=== PATIENT | female | born 1945 | race Caucasian/White ===

== ENCOUNTER 2021-06-01 10:38 | Inpatient (IN) ==
[2021-06-01] MEDS ORDERED: Fluticasone Propionate Nasal 50 MCG/SPRAY BOTTLE NS PRN (21:24)
[2021-06-01] MEDS ORDERED: Lactulose Oral Soln 20 GM/30 ML UDC PO SCH (22:00)
[2021-06-01] MEDS: Doxycycline 100 MG CAPSULE PO SCH (23:16)
[2021-06-01] MEDS: Lactulose Oral Soln 20 GM/30 ML UDC PO SCH (23:17)
[2021-06-01] MEDS: Acetaminophen 325 MG TABLET PO PRN (23:20)
[2021-06-02 04:51] LABS: Bilirubin,Urine Small (Negative); Blood,Urine Negative (Negative); Clarity,Urine Clear (Clear); Color,Urine Yellow (Yellow); Glucose,Urine (UA) Normal (Normal); Ketones,Urine Trace mg/dL (Negative); Leukocyte Esterase,Urine Negative (Negative); Nitrite,Urine Negative (Negative); Protein,Urine 30 mg/dL (Neg-Trace); Specific Gravity,Urine 1.025 (1.010-1.025); Urobilinogen,Urine Normal (Normal)
[2021-06-02 04:55] LABS: Bacteria,Urine Few per hpf (None-Few); RBC,Urine 0-3 per hpf (0-3); Squamous Epithelial Cell,Urine Few per hpf (None-Few); WBC,Urine 0-3 per hpf (0-3)
[2021-06-02 05:44] LABS: Basophils # 0.1 K/mcL (0.0-0.2); Basophils % 0.8 %; Eosinophils # 0.2 K/mcL (0.0-0.6); Eosinophils % 2.2 %; Hematocrit 19.6 % (35.3-44.9); Hemoglobin 6.8 g/dL (11.5-15.4); Immature Granulocytes % 0.5 % (0-4); Lymphocytes # 1.9 K/mcL (0.6-4.6); Mean Corpuscular HGB Conc 34.7 g/dL (31.6-35.5); Mean Corpuscular Volume 106.5 fL (83.0-100.0); Mean Platelet Volume 9.2 fL (9.4-12.4); Neutrophils # 4.5 K/mcL (1.6-8.9); Platelet Count 117 K/mcL (140-400); Red Blood Count 1.84 M/mcL (3.82-4.97); Red Cell Distribution Width 17.2 % (11.5-14.5); Segmented Neutrophils % 58.5 %; White Blood Count 7.8 K/mcL (4.3-11.1)
[2021-06-02 05:58] LABS: Alanine Aminotransferase 18 Units/L (7-52); Albumin 2.5 g/dL (3.5-5.7); Alkaline Phosphatase 67 Units/L (34-104); Aspartate Amino Transferase 41 Units/L (13-39); BUN/Creatinine Ratio 31 (6-26); Bilirubin,Total 3.5 mg/dL (0.3-1.0); Blood Urea Nitrogen 14 mg/dL (8-23); Calcium 7.7 mg/dL (8.6-10.3); Carbon Dioxide 27 mEq/L (23-29); Chloride 102 mEq/L (98-107); Globulin 2.4 g/dL (2.4-3.5); Glucose 151 mg/dL (70-105); Osmolality,Calculated 283 (280-300); Potassium 3.8 mEq/L (3.5-5.1); Sodium 135 mEq/L (136-145); Total Protein 4.9 g/dL (6.4-8.9); eGFR For African Americans > 60 (> 60); eGFR For Non-African Americans > 60 (> 60)
[2021-06-02] MEDS: *HR* Enoxaparin 40 MG/0.4 ML SYRINGE SQ SCH (07:23)
[2021-06-02 08:20] LABS: Hematocrit 20.4 % (35.3-44.9); Hemoglobin 6.9 g/dL (11.5-15.4)
[2021-06-02] MEDS: Lactulose Oral Soln 20 GM/30 ML UDC PO SCH ×4 (09:12→20:10)
[2021-06-02] MEDS: Aspirin Enteric Coated 325 MG Tablet PO SCH (09:13)
[2021-06-02] MEDS: Multivit/Ca/Min/Fe/FA 1 TAB TABLET PO SCH (09:13)
[2021-06-02] MEDS: Loratadine 10 MG TABLET PO SCH (09:13)
[2021-06-02] MEDS: Doxycycline 100 MG CAPSULE PO SCH ×2 (09:13→20:10)
[2021-06-02] MEDS: *HR* Metformin 500 MG TABLET PO SCH ×2 (09:13→17:09)
[2021-06-02] MEDS: PARoxetine 20 MG TABLET PO SCH (09:13)
[2021-06-02] MEDS ORDERED: 0.9 % Sodium Chloride 250 ML IVC SCH (09:30)
[2021-06-02] MEDS ORDERED: 0.9 % Sodium Chloride 250 ML ONE (09:33)
[2021-06-02 13:04] LABS: Iron 40 mcg/dL (50-170)
[2021-06-02 14:58] LABS: Hemoglobin 8.5 g/dL (11.5-15.4)
[2021-06-02] MEDS ORDERED: Calcium Gluconate 1gm/50mL 1 GM/50 ML BAG IVPB ONE ×2 (17:09→18:30)
[2021-06-02] MEDS: Acetaminophen 325 MG TABLET PO PRN (18:48)
[2021-06-03 08:04] LABS: Basophils # 0.1 K/mcL (0.0-0.2); Basophils % 0.9 %; Eosinophils # 0.2 K/mcL (0.0-0.6); Eosinophils % 3.1 %; Hematocrit 24.5 % (35.3-44.9); Hemoglobin 8.3 g/dL (11.5-15.4); Lymphocytes # 1.7 K/mcL (0.6-4.6); Mean Corpuscular HGB Conc 33.9 g/dL (31.6-35.5); Mean Corpuscular Hemoglobin 35.6 pg (28.0-33.3); Mean Corpuscular Volume 105.2 fL (83.0-100.0); Mean Platelet Volume 8.7 fL (9.4-12.4); Monocytes % 12.8 %; Neutrophils # 4.7 K/mcL (1.6-8.9); Platelet Count 118 K/mcL (140-400); Red Blood Count 2.33 M/mcL (3.82-4.97); Red Cell Distribution Width 18.3 % (11.5-14.5); Segmented Neutrophils % 60.2 %; White Blood Count 7.8 K/mcL (4.3-11.1)
[2021-06-03 08:15] LABS: VBG HCO3 23 mEq/L (21-27); VBG Ionized Calcium 1.17 mmol/L (1.15-1.35); VBG PCO2 36 mmHg (41-51); VBG PH 7.42 pH Units (7.32-7.42); VBG PO2 79 mmHg (25-50)
[2021-06-03 08:20] LABS: Alanine Aminotransferase 20 Units/L (7-52); Albumin 2.6 g/dL (3.5-5.7); Alkaline Phosphatase 74 Units/L (34-104); Aspartate Amino Transferase 41 Units/L (13-39); BUN/Creatinine Ratio 28 (6-26); Bilirubin,Total 3.7 mg/dL (0.3-1.0); Blood Urea Nitrogen 13 mg/dL (8-23); Calcium 8.1 mg/dL (8.6-10.3); Carbon Dioxide 24 mEq/L (23-29); Chloride 102 mEq/L (98-107); Globulin 2.6 g/dL (2.4-3.5); Glucose 135 mg/dL (70-105); Osmolality,Calculated 278 (280-300); Potassium 3.8 mEq/L (3.5-5.1); Sodium 133 mEq/L (136-145); Total Protein 5.2 g/dL (6.4-8.9); eGFR For African Americans > 60 (> 60); eGFR For Non-African Americans > 60 (> 60)
[2021-06-03] MEDS: Lactulose Oral Soln 20 GM/30 ML UDC PO SCH ×4 (08:54→21:17)
[2021-06-03] MEDS: PARoxetine 20 MG TABLET PO SCH (08:55)
[2021-06-03] MEDS: *HR* Metformin 500 MG TABLET PO SCH ×2 (08:55→17:56)
[2021-06-03] MEDS: Aspirin Enteric Coated 325 MG Tablet PO SCH (08:56)
[2021-06-03] MEDS: Multivit/Ca/Min/Fe/FA 1 TAB TABLET PO SCH (08:56)
[2021-06-03] MEDS: Doxycycline 100 MG CAPSULE PO SCH ×2 (08:56→21:18)
[2021-06-03] MEDS: Loratadine 10 MG TABLET PO SCH (08:56)
[2021-06-03] MEDS: *HR* Enoxaparin 40 MG/0.4 ML SYRINGE SQ SCH (09:14)
[2021-06-03] MEDS: Acetaminophen 325 MG TABLET PO PRN (09:17)
[2021-06-03] MEDS: *HR* OxyCODONE Immed Rel 5 MG TABLET PO PRN (21:17)
[2021-06-04] MEDS: *HR* Enoxaparin 40 MG/0.4 ML SYRINGE SQ SCH (05:37)
[2021-06-04 07:52] LABS: Basophils # 0.1 K/mcL (0.0-0.2); Basophils % 1.1 %; Eosinophils # 0.3 K/mcL (0.0-0.6); Hemoglobin 8.1 g/dL (11.5-15.4); Immature Granulocytes % 0.5 % (0-4); Lymphocytes % 24.9 %; Mean Corpuscular HGB Conc 33.8 g/dL (31.6-35.5); Mean Corpuscular Volume 106.7 fL (83.0-100.0); Mean Platelet Volume 8.8 fL (9.4-12.4); Monocytes # 1.1 K/mcL (0.0-1.3); Monocytes % 13.2 %; Neutrophils # 4.6 K/mcL (1.6-8.9); Platelet Count 121 K/mcL (140-400); Red Blood Count 2.25 M/mcL (3.82-4.97); Red Cell Distribution Width 18.2 % (11.5-14.5); Segmented Neutrophils % 56.3 %; White Blood Count 8.2 K/mcL (4.3-11.1)
[2021-06-04 08:10] LABS: Alanine Aminotransferase 21 Units/L (7-52); Albumin 2.6 g/dL (3.5-5.7); Alkaline Phosphatase 74 Units/L (34-104); Aspartate Amino Transferase 44 Units/L (13-39); BUN/Creatinine Ratio 25 (6-26); Bilirubin,Total 3.3 mg/dL (0.3-1.0); Blood Urea Nitrogen 12 mg/dL (8-23); Calcium 8.1 mg/dL (8.6-10.3); Carbon Dioxide 23 mEq/L (23-29); Chloride 104 mEq/L (98-107); Globulin 2.6 g/dL (2.4-3.5); Glucose 121 mg/dL (70-105); Osmolality,Calculated 279 (280-300); Potassium 3.9 mEq/L (3.5-5.1); Sodium 134 mEq/L (136-145); Total Protein 5.2 g/dL (6.4-8.9); eGFR For African Americans > 60 (> 60); eGFR For Non-African Americans > 60 (> 60)
[2021-06-04] MEDS: Acetaminophen 325 MG TABLET PO PRN (09:58)
[2021-06-04] MEDS: Aspirin Enteric Coated 325 MG Tablet PO SCH (09:58)
[2021-06-04] MEDS: Multivit/Ca/Min/Fe/FA 1 TAB TABLET PO SCH (09:58)
[2021-06-04] MEDS: *HR* Metformin 500 MG TABLET PO SCH ×2 (09:58→16:08)
[2021-06-04] MEDS: Lactulose Oral Soln 20 GM/30 ML UDC PO SCH ×5 (09:59→21:00)
[2021-06-04] MEDS: PARoxetine 20 MG TABLET PO SCH (09:59)
[2021-06-04] MEDS: Loratadine 10 MG TABLET PO SCH (09:59)
[2021-06-05] MEDS: *HR* OxyCODONE Immed Rel 5 MG TABLET PO PRN (02:03)
[2021-06-05 05:13] LABS: Basophils # 0.1 K/mcL (0.0-0.2); Eosinophils # 0.3 K/mcL (0.0-0.6); Hematocrit 24.9 % (35.3-44.9); Hemoglobin 8.1 g/dL (11.5-15.4); Immature Granulocytes % 0.8 % (0-4); Lymphocytes # 1.7 K/mcL (0.6-4.6); Lymphocytes % 21.2 %; Mean Corpuscular HGB Conc 32.5 g/dL (31.6-35.5); Mean Corpuscular Hemoglobin 34.9 pg (28.0-33.3); Mean Corpuscular Volume 107.3 fL (83.0-100.0); Mean Platelet Volume 9.6 fL (9.4-12.4); Monocytes # 1.1 K/mcL (0.0-1.3); Monocytes % 13.7 %; Neutrophils # 4.7 K/mcL (1.6-8.9); Platelet Count 133 K/mcL (140-400); Red Blood Count 2.32 M/mcL (3.82-4.97); Red Cell Distribution Width 18.1 % (11.5-14.5); Segmented Neutrophils % 59.3 %; White Blood Count 7.8 K/mcL (4.3-11.1)
[2021-06-05 05:30] LABS: Alanine Aminotransferase 23 Units/L (7-52); Albumin 2.6 g/dL (3.5-5.7); Alkaline Phosphatase 75 Units/L (34-104); Aspartate Amino Transferase 46 Units/L (13-39); BUN/Creatinine Ratio 33 (6-26); Bilirubin,Total 3.1 mg/dL (0.3-1.0); Blood Urea Nitrogen 14 mg/dL (8-23); Calcium 8.5 mg/dL (8.6-10.3); Carbon Dioxide 24 mEq/L (23-29); Chloride 104 mEq/L (98-107); Globulin 2.7 g/dL (2.4-3.5); Glucose 116 mg/dL (70-105); Osmolality,Calculated 283 (280-300); Potassium 4.4 mEq/L (3.5-5.1); Sodium 136 mEq/L (136-145); Total Protein 5.3 g/dL (6.4-8.9); eGFR For African Americans > 60 (> 60); eGFR For Non-African Americans > 60 (> 60)
[2021-06-05] MEDS: *HR* Enoxaparin 40 MG/0.4 ML SYRINGE SQ SCH (05:56)
[2021-06-05] MEDS: Acetaminophen 325 MG TABLET PO PRN ×2 (05:57→14:17)
[2021-06-05 07:57] LABS: % Iron Saturation 15 % (15-50); Transferrin 188 mg/dL (200-400)
[2021-06-05] MEDS: Lactulose Oral Soln 20 GM/30 ML UDC PO SCH ×4 (08:15→21:58)
[2021-06-05] MEDS: Multivit/Ca/Min/Fe/FA 1 TAB TABLET PO SCH (08:16)
[2021-06-05] MEDS: Loratadine 10 MG TABLET PO SCH (08:16)
[2021-06-05] MEDS: *HR* Metformin 500 MG TABLET PO SCH ×2 (08:16→18:43)
[2021-06-05] MEDS: PARoxetine 20 MG TABLET PO SCH (08:16)
[2021-06-05] MEDS: Aspirin Enteric Coated 325 MG Tablet PO SCH (08:16)
[2021-06-05] MEDS: Ondansetron 4 MG/2 ML VIAL IVP PRN (09:35)
[2021-06-05] MEDS ORDERED: polyethylene glycoL 3350 17 GM POWD.PACK PO ONE (20:47)
[2021-06-06] MEDS: *HR* OxyCODONE Immed Rel 5 MG TABLET PO PRN (01:29)
[2021-06-06 05:09] LABS: Mean Corpuscular Hemoglobin 35.4 pg (28.0-33.3); Mean Corpuscular Volume 110.6 fL (83.0-100.0); Mean Platelet Volume 9.2 fL (9.4-12.4); Platelet Count 122 K/mcL (140-400); Red Blood Count 2.26 M/mcL (3.82-4.97); Red Cell Distribution Width 18.3 % (11.5-14.5); White Blood Count 7.2 K/mcL (4.3-11.1)
[2021-06-06] MEDS: *HR* Enoxaparin 40 MG/0.4 ML SYRINGE SQ SCH (05:09)
[2021-06-06 05:24] LABS: BUN/Creatinine Ratio 24 (6-26); Blood Urea Nitrogen 12 mg/dL (8-23); Calcium 8.4 mg/dL (8.6-10.3); Carbon Dioxide 23 mEq/L (23-29); Chloride 106 mEq/L (98-107); Glucose 133 mg/dL (70-105); Osmolality,Calculated 286 (280-300); Potassium 4.1 mEq/L (3.5-5.1); Sodium 137 mEq/L (136-145); eGFR For African Americans > 60 (> 60); eGFR For Non-African Americans > 60 (> 60)
[2021-06-06] MEDS: Lactulose Oral Soln 20 GM/30 ML UDC PO SCH ×4 (08:28→21:15)
[2021-06-06] MEDS: Loratadine 10 MG TABLET PO SCH (08:31)
[2021-06-06] MEDS: Multivit/Ca/Min/Fe/FA 1 TAB TABLET PO SCH (08:31)
[2021-06-06] MEDS: Aspirin Enteric Coated 325 MG Tablet PO SCH (08:31)
[2021-06-06] MEDS: *HR* Metformin 500 MG TABLET PO SCH ×2 (08:31→17:31)
[2021-06-06] MEDS: PARoxetine 20 MG TABLET PO SCH (08:31)
[2021-06-06 11:38] LABS: Bilirubin,Urine Small (Negative); Blood,Urine Negative (Negative); Clarity,Urine Clear (Clear); Color,Urine Amber (Yellow); Glucose,Urine (UA) Normal (Normal); Ketones,Urine Trace mg/dL (Negative); Leukocyte Esterase,Urine Negative (Negative); Nitrite,Urine Negative (Negative); Protein,Urine Negative (Neg-Trace); Specific Gravity,Urine 1.025 (1.010-1.025); Urobilinogen,Urine Normal (Normal)
[2021-06-07] MEDS: *HR* Enoxaparin 40 MG/0.4 ML SYRINGE SQ SCH (04:54)
[2021-06-07] MEDS: *HR* OxyCODONE Immed Rel 5 MG TABLET PO PRN (04:54)
[2021-06-07] MEDS: Aspirin Enteric Coated 325 MG Tablet PO SCH (08:11)
[2021-06-07] MEDS: *HR* Metformin 500 MG TABLET PO SCH ×2 (08:11→17:13)
[2021-06-07] MEDS: Multivit/Ca/Min/Fe/FA 1 TAB TABLET PO SCH (08:11)
[2021-06-07] MEDS: PARoxetine 20 MG TABLET PO SCH (08:12)
[2021-06-07] MEDS: Loratadine 10 MG TABLET PO SCH (08:12)
[2021-06-07] MEDS: Lactulose Oral Soln 20 GM/30 ML UDC PO SCH ×4 (08:13→20:46)
[2021-06-08] MEDS: Acetaminophen 325 MG TABLET PO PRN ×2 (01:43→21:36)
[2021-06-08] MEDS: *HR* Enoxaparin 40 MG/0.4 ML SYRINGE SQ SCH (05:17)
[2021-06-08 07:02] LABS: Alanine Aminotransferase 28 Units/L (7-52); Albumin 2.5 g/dL (3.5-5.7); Alkaline Phosphatase 73 Units/L (34-104); Aspartate Amino Transferase 55 Units/L (13-39); BUN/Creatinine Ratio 19 (6-26); Bilirubin,Total 2.5 mg/dL (0.3-1.0); Blood Urea Nitrogen 10 mg/dL (8-23); Carbon Dioxide 25 mEq/L (23-29); Chloride 104 mEq/L (98-107); Globulin 2.4 g/dL (2.4-3.5); Glucose 137 mg/dL (70-105); Osmolality,Calculated 285 (280-300); Potassium 3.7 mEq/L (3.5-5.1); Sodium 137 mEq/L (136-145); Total Protein 4.9 g/dL (6.4-8.9); eGFR For African Americans > 60 (> 60); eGFR For Non-African Americans > 60 (> 60)
[2021-06-08 07:04] LABS: Basophils # 0.1 K/mcL (0.0-0.2); Basophils % 0.9 %; Eosinophils # 0.2 K/mcL (0.0-0.6); Eosinophils % 2.4 %; Hematocrit 22.8 % (35.3-44.9); Hemoglobin 7.5 g/dL (11.5-15.4); Immature Granulocytes % 0.2 % (0-4); Lymphocytes # 1.4 K/mcL (0.6-4.6); Lymphocytes % 21.7 %; Mean Corpuscular HGB Conc 32.9 g/dL (31.6-35.5); Mean Corpuscular Hemoglobin 35.5 pg (28.0-33.3); Mean Corpuscular Volume 108.1 fL (83.0-100.0); Mean Platelet Volume 9.5 fL (9.4-12.4); Monocytes # 0.8 K/mcL (0.0-1.3); Monocytes % 12.1 %; Platelet Count 108 K/mcL (140-400); Red Blood Count 2.11 M/mcL (3.82-4.97); Red Cell Distribution Width 18.3 % (11.5-14.5); Segmented Neutrophils % 62.7 %; White Blood Count 6.4 K/mcL (4.3-11.1)
[2021-06-08 07:08] LABS: Calcium 8.2 mg/dL (8.6-10.3)
[2021-06-08] MEDS: *HR* OxyCODONE Immed Rel 5 MG TABLET PO PRN (08:37)
[2021-06-08] MEDS: PARoxetine 20 MG TABLET PO SCH (08:37)
[2021-06-08] MEDS: *HR* Metformin 500 MG TABLET PO SCH ×2 (08:37→16:25)
[2021-06-08] MEDS: Aspirin Enteric Coated 325 MG Tablet PO SCH (08:37)
[2021-06-08] MEDS: Lactulose Oral Soln 20 GM/30 ML UDC PO SCH ×4 (08:37→21:36)
[2021-06-08] MEDS: Loratadine 10 MG TABLET PO SCH (08:37)
[2021-06-08] MEDS: Multivit/Ca/Min/Fe/FA 1 TAB TABLET PO SCH (08:38)
[2021-06-09 06:26] LABS: Basophils # 0.1 K/mcL (0.0-0.2); Eosinophils # 0.2 K/mcL (0.0-0.6); Eosinophils % 3.8 %; Hemoglobin 7.8 g/dL (11.5-15.4); Immature Granulocytes % 0.2 % (0-4); Lymphocytes # 1.3 K/mcL (0.6-4.6); Lymphocytes % 26.1 %; Mean Corpuscular HGB Conc 32.5 g/dL (31.6-35.5); Mean Corpuscular Hemoglobin 35.5 pg (28.0-33.3); Mean Corpuscular Volume 109.1 fL (83.0-100.0); Mean Platelet Volume 9.8 fL (9.4-12.4); Monocytes # 0.6 K/mcL (0.0-1.3); Monocytes % 11.2 %; Neutrophils # 2.9 K/mcL (1.6-8.9); Red Cell Distribution Width 18.1 % (11.5-14.5); Segmented Neutrophils % 57.7 %
[2021-06-09 06:30] LABS: Alanine Aminotransferase 29 Units/L (7-52); Albumin 2.6 g/dL (3.5-5.7); Albumin/Globulin Ratio 1.1 (1.1-2.2); Alkaline Phosphatase 63 Units/L (34-104); Aspartate Amino Transferase 55 Units/L (13-39); BUN/Creatinine Ratio 16 (6-26); Blood Urea Nitrogen 8 mg/dL (8-23); Calcium 8.1 mg/dL (8.6-10.3); Carbon Dioxide 26 mEq/L (23-29); Chloride 105 mEq/L (98-107); Globulin 2.4 g/dL (2.4-3.5); Glucose 102 mg/dL (70-105); Osmolality,Calculated 283 (280-300); Potassium 3.6 mEq/L (3.5-5.1); Sodium 137 mEq/L (136-145); eGFR For African Americans > 60 (> 60); eGFR For Non-African Americans > 60 (> 60)
[2021-06-09 06:41] LABS: Platelet Count 95 K/mcL (140-400)
[2021-06-09 07:02] LABS: Platelet Estimate Slight Decrease (Normal)
[2021-06-09] MEDS: Lactulose Oral Soln 20 GM/30 ML UDC PO SCH ×4 (09:02→22:18)
[2021-06-09] MEDS: *HR* Metformin 500 MG TABLET PO SCH ×2 (09:03→16:56)
[2021-06-09] MEDS: Aspirin Enteric Coated 325 MG Tablet PO SCH (09:03)
[2021-06-09] MEDS: PARoxetine 20 MG TABLET PO SCH (09:03)
[2021-06-09] MEDS: Loratadine 10 MG TABLET PO SCH (09:03)
[2021-06-09] MEDS: Multivit/Ca/Min/Fe/FA 1 TAB TABLET PO SCH (09:03)
[2021-06-09 09:34] LABS: VBG Ionized Calcium 1.13 mmol/L (1.15-1.35)
[2021-06-09] MEDS ORDERED: Calcium Gluconate 1gm/50mL 1 GM/50 ML BAG IVPB ONE (13:08)
[2021-06-09] MEDS: *HR* OxyCODONE Immed Rel 5 MG TABLET PO PRN (13:12)
[2021-06-09] MEDS: Acetaminophen 325 MG TABLET PO PRN (22:24)
[2021-06-10 06:11] LABS: Basophils # 0.1 K/mcL (0.0-0.2); Basophils % 1.3 %; Eosinophils # 0.3 K/mcL (0.0-0.6); Hematocrit 24.6 % (35.3-44.9); Hemoglobin 8.1 g/dL (11.5-15.4); Immature Granulocytes % 0.5 % (0-4); Lymphocytes # 1.4 K/mcL (0.6-4.6); Lymphocytes % 22.4 %; Mean Corpuscular HGB Conc 32.9 g/dL (31.6-35.5); Mean Corpuscular Hemoglobin 35.4 pg (28.0-33.3); Mean Corpuscular Volume 107.4 fL (83.0-100.0); Mean Platelet Volume 9.6 fL (9.4-12.4); Monocytes # 0.8 K/mcL (0.0-1.3); Monocytes % 13.2 %; Neutrophils # 3.6 K/mcL (1.6-8.9); Platelet Count 101 K/mcL (140-400); Red Blood Count 2.29 M/mcL (3.82-4.97); Segmented Neutrophils % 58.6 %; White Blood Count 6.2 K/mcL (4.3-11.1)
[2021-06-10 06:28] LABS: Alanine Aminotransferase 31 Units/L (7-52); Albumin 2.7 g/dL (3.5-5.7); Alkaline Phosphatase 76 Units/L (34-104); Aspartate Amino Transferase 58 Units/L (13-39); BUN/Creatinine Ratio 15 (6-26); Blood Urea Nitrogen 8 mg/dL (8-23); Calcium 8.1 mg/dL (8.6-10.3); Carbon Dioxide 26 mEq/L (23-29); Chloride 105 mEq/L (98-107); Globulin 2.6 g/dL (2.4-3.5); Glucose 124 mg/dL (70-105); Osmolality,Calculated 284 (280-300); Potassium 3.7 mEq/L (3.5-5.1); Sodium 137 mEq/L (136-145); Total Protein 5.3 g/dL (6.4-8.9); eGFR For African Americans > 60 (> 60); eGFR For Non-African Americans > 60 (> 60)
[2021-06-10] MEDS: Multivit/Ca/Min/Fe/FA 1 TAB TABLET PO SCH (09:35)
[2021-06-10] MEDS: Aspirin Enteric Coated 325 MG Tablet PO SCH (09:35)
[2021-06-10] MEDS: Loratadine 10 MG TABLET PO SCH (09:35)
[2021-06-10] MEDS: PARoxetine 20 MG TABLET PO SCH (09:35)
[2021-06-10] MEDS: Lactulose Oral Soln 20 GM/30 ML UDC PO SCH ×4 (09:36→21:05)
[2021-06-10] MEDS: *HR* Metformin 500 MG TABLET PO SCH ×2 (09:36→17:41)
[2021-06-10] MEDS: Acetaminophen 325 MG TABLET PO PRN ×2 (09:38→21:06)
[2021-06-11] MEDS: *HR* OxyCODONE Immed Rel 5 MG TABLET PO PRN ×2 (00:27→20:16)
[2021-06-11 06:46] LABS: Basophils # 0.1 K/mcL (0.0-0.2); Basophils % 1.2 %; Eosinophils # 0.3 K/mcL (0.0-0.6); Eosinophils % 4.4 %; Hematocrit 24.6 % (35.3-44.9); Immature Granulocytes % 0.2 % (0-4); Lymphocytes # 1.4 K/mcL (0.6-4.6); Lymphocytes % 22.8 %; Mean Corpuscular HGB Conc 32.5 g/dL (31.6-35.5); Mean Corpuscular Hemoglobin 35.7 pg (28.0-33.3); Mean Corpuscular Volume 109.8 fL (83.0-100.0); Mean Platelet Volume 8.9 fL (9.4-12.4); Monocytes # 0.7 K/mcL (0.0-1.3); Monocytes % 11.8 %; Neutrophils # 3.5 K/mcL (1.6-8.9); Red Blood Count 2.24 M/mcL (3.82-4.97); Red Cell Distribution Width 18.3 % (11.5-14.5); Segmented Neutrophils % 59.6 %; White Blood Count 5.9 K/mcL (4.3-11.1)
[2021-06-11 06:47] LABS: Platelet Count 94 K/mcL (140-400)
[2021-06-11 07:06] LABS: Alanine Aminotransferase 29 Units/L (7-52); Albumin 2.6 g/dL (3.5-5.7); Alkaline Phosphatase 80 Units/L (34-104); Aspartate Amino Transferase 58 Units/L (13-39); BUN/Creatinine Ratio 19 (6-26); Bilirubin,Total 2.7 mg/dL (0.3-1.0); Blood Urea Nitrogen 10 mg/dL (8-23); Carbon Dioxide 24 mEq/L (23-29); Chloride 105 mEq/L (98-107); Globulin 2.5 g/dL (2.4-3.5); Glucose 106 mg/dL (70-105); Osmolality,Calculated 279 (280-300); Potassium 3.8 mEq/L (3.5-5.1); Sodium 135 mEq/L (136-145); Total Protein 5.1 g/dL (6.4-8.9); eGFR For African Americans > 60 (> 60); eGFR For Non-African Americans > 60 (> 60)
[2021-06-11] MEDS ORDERED: Furosemide 20 MG TABLET PO ONE (08:15)
[2021-06-11] MEDS: PARoxetine 20 MG TABLET PO SCH (09:20)
[2021-06-11] MEDS: Loratadine 10 MG TABLET PO SCH (09:20)
[2021-06-11] MEDS: Lactulose Oral Soln 20 GM/30 ML UDC PO SCH ×3 (09:20→17:12)
[2021-06-11] MEDS: Multivit/Ca/Min/Fe/FA 1 TAB TABLET PO SCH (09:20)
[2021-06-11] MEDS: *HR* Metformin 500 MG TABLET PO SCH ×2 (09:20→17:08)
[2021-06-11] MEDS: Aspirin Enteric Coated 325 MG Tablet PO SCH (09:20)
[2021-06-12] MEDS: Lactulose Oral Soln 20 GM/30 ML UDC PO SCH ×5 (01:29→20:37)
[2021-06-12] MEDS: *HR* OxyCODONE Immed Rel 5 MG TABLET PO PRN ×2 (06:08→23:18)
[2021-06-12] MEDS: *HR* Metformin 500 MG TABLET PO SCH ×2 (06:08→18:43)
[2021-06-12] MEDS: Aspirin Enteric Coated 325 MG Tablet PO SCH (08:33)
[2021-06-12] MEDS: Multivit/Ca/Min/Fe/FA 1 TAB TABLET PO SCH (08:33)
[2021-06-12] MEDS: PARoxetine 20 MG TABLET PO SCH (08:33)
[2021-06-12] MEDS: Loratadine 10 MG TABLET PO SCH (08:33)
[2021-06-13] MEDS: Acetaminophen 325 MG TABLET PO PRN (05:40)
[2021-06-13] MEDS: Aspirin Enteric Coated 325 MG Tablet PO SCH (08:38)
[2021-06-13] MEDS: Loratadine 10 MG TABLET PO SCH (08:38)
[2021-06-13] MEDS: PARoxetine 20 MG TABLET PO SCH (08:38)
[2021-06-13] MEDS: *HR* Metformin 500 MG TABLET PO SCH ×2 (08:38→17:55)
[2021-06-13] MEDS: Lactulose Oral Soln 20 GM/30 ML UDC PO SCH ×4 (08:38→21:35)
[2021-06-13] MEDS: Multivit/Ca/Min/Fe/FA 1 TAB TABLET PO SCH (08:38)
[2021-06-13] MEDS: *HR* OxyCODONE Immed Rel 5 MG TABLET PO PRN (21:40)
[2021-06-14 05:34] LABS: Basophils # 0.1 K/mcL (0.0-0.2); Basophils % 0.9 %; Eosinophils # 0.3 K/mcL (0.0-0.6); Eosinophils % 5.1 %; Hematocrit 27.2 % (35.3-44.9); Hemoglobin 8.8 g/dL (11.5-15.4); Immature Granulocytes % 0.3 % (0-4); Lymphocytes # 1.4 K/mcL (0.6-4.6); Lymphocytes % 23.5 %; Mean Corpuscular HGB Conc 32.4 g/dL (31.6-35.5); Mean Corpuscular Hemoglobin 35.9 pg (28.0-33.3); Monocytes # 0.6 K/mcL (0.0-1.3); Monocytes % 10.6 %; Neutrophils # 3.5 K/mcL (1.6-8.9); Platelet Count 104 K/mcL (140-400); Red Blood Count 2.45 M/mcL (3.82-4.97); Red Cell Distribution Width 18.1 % (11.5-14.5); Segmented Neutrophils % 59.6 %; White Blood Count 5.8 K/mcL (4.3-11.1)
[2021-06-14 05:38] LABS: Macrocytosis Present (Not Present); Platelet Estimate Slight Decrease (Normal)
[2021-06-14 05:50] LABS: Alanine Aminotransferase 24 Units/L (7-52); Albumin 2.7 g/dL (3.5-5.7); Albumin/Globulin Ratio 1.1 (1.1-2.2); Alkaline Phosphatase 79 Units/L (34-104); Aspartate Amino Transferase 50 Units/L (13-39); BUN/Creatinine Ratio 19 (6-26); Bilirubin,Total 3.4 mg/dL (0.3-1.0); Blood Urea Nitrogen 9 mg/dL (8-23); Calcium 9.4 mg/dL (8.6-10.3); Carbon Dioxide 25 mEq/L (23-29); Chloride 105 mEq/L (98-107); Globulin 2.5 g/dL (2.4-3.5); Glucose 93 mg/dL (70-105); Osmolality,Calculated 286 (280-300); Sodium 139 mEq/L (136-145); Total Protein 5.2 g/dL (6.4-8.9); eGFR For African Americans > 60 (> 60); eGFR For Non-African Americans > 60 (> 60)
[2021-06-14] MEDS: *HR* OxyCODONE Immed Rel 5 MG TABLET PO PRN (07:41)
[2021-06-14] MEDS: Loratadine 10 MG TABLET PO SCH (07:42)
[2021-06-14] MEDS: Aspirin Enteric Coated 325 MG Tablet PO SCH (07:42)
[2021-06-14] MEDS: PARoxetine 20 MG TABLET PO SCH (07:42)
[2021-06-14] MEDS: Multivit/Ca/Min/Fe/FA 1 TAB TABLET PO SCH (07:42)
[2021-06-14] MEDS: *HR* Metformin 500 MG TABLET PO SCH ×2 (07:43→16:21)
[2021-06-14] MEDS: Lactulose Oral Soln 20 GM/30 ML UDC PO SCH ×4 (09:26→20:28)
[2021-06-14] MEDS: Acetaminophen 325 MG TABLET PO PRN ×2 (14:23→20:27)
[2021-06-14] MEDS ORDERED: Furosemide 40 MG TABLET PO ONE (16:15)
[2021-06-15] MEDS: *HR* Enoxaparin 40 MG/0.4 ML SYRINGE SQ SCH (05:10)
[2021-06-15] MEDS: Multivit/Ca/Min/Fe/FA 1 TAB TABLET PO SCH (08:50)
[2021-06-15] MEDS: Loratadine 10 MG TABLET PO SCH (08:50)
[2021-06-15] MEDS: Aspirin Enteric Coated 325 MG Tablet PO SCH (08:50)
[2021-06-15] MEDS: Lactulose Oral Soln 20 GM/30 ML UDC PO SCH ×4 (08:50→20:18)
[2021-06-15] MEDS: PARoxetine 20 MG TABLET PO SCH (08:50)
[2021-06-15] MEDS: *HR* Metformin 500 MG TABLET PO SCH ×2 (08:50→17:26)
[2021-06-15] MEDS: Acetaminophen 325 MG TABLET PO PRN ×2 (08:55→20:36)
[2021-06-15] MEDS ORDERED: Furosemide 40 MG TABLET PO SCH (10:00)
[2021-06-15 10:59] LABS: Bilirubin,Urine Negative (Negative); Blood,Urine Negative (Negative); Clarity,Urine Cloudy (Clear); Color,Urine Yellow (Yellow); Glucose,Urine (UA) Normal (Normal); Ketones,Urine Negative (Negative); Leukocyte Esterase,Urine Trace (Negative); Nitrite,Urine Negative (Negative); PH,Urine 7.5 pH Units (5.0-8.0); Protein,Urine Negative (Neg-Trace); Urobilinogen,Urine >=8.0 mg/dL (Normal)
[2021-06-15 11:30] LABS: Bacteria,Urine Many per hpf (None-Few)
[2021-06-15 11:31] LABS: Squamous Epithelial Cell,Urine Few per hpf (None-Few); WBC,Urine 0-3 per hpf (0-3)
[2021-06-15] MEDS ORDERED: Furosemide 40 MG TABLET PO ONE (16:04)
[2021-06-15] MEDS ORDERED: cefTRIAXone 1,000 MG in Water for inj. (sterile) 10 ML IVP ONE (19:45)
[2021-06-15] MEDS ORDERED: cefTRIAXone 1,000 MG in 0.9 % Sodium Chloride Mini Bag 100 ML IVPB ONE (22:00)
[2021-06-16] MEDS: Ondansetron 4 MG/2 ML VIAL IVP PRN
[2021-06-16 00:53] LABS: Basophils % 0.5 %; Eosinophils % 1.1 %; Hematocrit 28.3 % (35.3-44.9); Hemoglobin 9.3 g/dL (11.5-15.4); Immature Granulocytes % 0.5 % (0-4); Lymphocytes # 0.2 K/mcL (0.6-4.6); Lymphocytes % 6.6 %; Mean Corpuscular HGB Conc 32.9 g/dL (31.6-35.5); Mean Corpuscular Hemoglobin 35.8 pg (28.0-33.3); Mean Corpuscular Volume 108.8 fL (83.0-100.0); Mean Platelet Volume 9.7 fL (9.4-12.4); Monocytes # 0.1 K/mcL (0.0-1.3); Monocytes % 2.5 %; Neutrophils # 3.2 K/mcL (1.6-8.9); Red Cell Distribution Width 17.7 % (11.5-14.5); Segmented Neutrophils % 88.8 %; White Blood Count 3.6 K/mcL (4.3-11.1)
[2021-06-16 01:02] LABS: Platelet Count 93 K/mcL (140-400)
[2021-06-16 01:11] LABS: Alanine Aminotransferase 27 Units/L (7-52); Albumin 3.1 g/dL (3.5-5.7); Albumin/Globulin Ratio 0.9 (1.1-2.2); Alkaline Phosphatase 88 Units/L (34-104); Aspartate Amino Transferase 53 Units/L (13-39); BUN/Creatinine Ratio 12 (6-26); Bilirubin,Total 3.2 mg/dL (0.3-1.0); Blood Urea Nitrogen 7 mg/dL (8-23); Calcium 9.2 mg/dL (8.6-10.3); Carbon Dioxide 24 mEq/L (23-29); Chloride 101 mEq/L (98-107); Globulin 3.5 g/dL (2.4-3.5); Glucose 150 mg/dL (70-105); Lipase 75 Units/L (11-82); Osmolality,Calculated 285 (280-300); Potassium 3.3 mEq/L (3.5-5.1); Sodium 137 mEq/L (136-145); Total Protein 6.6 g/dL (6.4-8.9); eGFR For African Americans > 60 (> 60); eGFR For Non-African Americans > 60 (> 60)
[2021-06-16] MEDS ORDERED: Acetaminophen 650 MG RECTAL SUPP RC ONE (01:49)
[2021-06-16] MEDS ORDERED: Iopamidol - 370 500 ML MLS IVP ONE ×2 (03:08→03:10)
[2021-06-16] MEDS ORDERED: Ringers Solution, Lactated 1,000 ML IVC ONE (03:24)
[2021-06-16] MEDS ORDERED: VANCOMYCIN IVPB ONE (04:00)
[2021-06-16] MEDS ORDERED: SODIUM CHLORIDE 0.9% IVPB ONE (04:00)
[2021-06-16 04:34] VITALS: BP 122/67; PULSE 114; RESP 17; TEMP 98.1; O2SAT 91
[2021-06-16 07:02] LABS: Adenovirus Not Detected (Not Detect); Coronavirus 229E Not Detected (Not Detect); Coronavirus HKU1 Not Detected (Not Detect); Coronavirus NL63 Not Detected (Not Detect); Coronavirus OC43 Not Detected (Not Detect); Human Metapneumovirus Not Detected (Not Detect); Human Rhinovirus/Enterovirus Not Detected (Not Detect); SARS-CoV-2 Not Detected (Not Detect)
[2021-06-16 07:03] LABS: Bordetella Pertussis Not Detected (Not Detect); Chlamydophila pneumoniae Not Detected (Not Detect); Influenza A Subtype 2009 H1 Not Detected (Not Detect); Influenza B Not Detected (Not Detect); Mycoplasma pneumoniae Not Detected (Not Detect); Parainfluenza Virus 1 Not Detected (Not Detect); Parainfluenza Virus 2 Not Detected (Not Detect); Parainfluenza Virus 3 Not Detected (Not Detect); Parainfluenza Virus 4 Not Detected (Not Detect); Respiratory Syncytial Virus Not Detected (Not Detect)
[2021-06-16] MEDS ORDERED: cefTRIAXone 1,000 MG in 0.9 % Sodium Chloride Mini Bag 100 ML IVPB SCH (09:00)
[2021-06-16] MEDS ORDERED: cefTRIAXone 1,000 MG in Water for inj. (sterile) 10 ML IVP SCH (09:00)
[2021-06-16] MEDS ORDERED: Vancomycin 1,250 MG/262.5 ML IV.SOLN IVPB SCH (16:00)
== END 2021-06-16 05:31 | disposition short-term general hospital (02) ==
LOC: INPGRE 20:16
PROVIDERS: ADMIT Family Medicine; ATTEND Family Medicine

== ENCOUNTER 2021-06-20 15:57 | Inpatient (IN) ==
[2021-06-21] MEDS: Furosemide 40 MG/4 ML VIAL IVP SCH (14:22)
[2021-06-21 14:52] LABS: Bilirubin,Urine Small (Negative); Blood,Urine Negative (Negative); Clarity,Urine Clear (Clear); Color,Urine Yellow (Yellow); Glucose,Urine (UA) Normal (Normal); Ketones,Urine Negative (Negative); Leukocyte Esterase,Urine Negative (Negative); Nitrite,Urine Negative (Negative); Protein,Urine Negative (Neg-Trace); Specific Gravity,Urine 1.025 (1.010-1.025); Urobilinogen,Urine >=8.0 mg/dL (Normal)
[2021-06-21] MEDS: Lactulose Oral Soln 20 GM/30 ML UDC PO SCH ×2 (17:49→21:04)
[2021-06-21] MEDS: *HR* Metformin 500 MG TABLET PO SCH (21:01)
[2021-06-22] MEDS: *HR* Enoxaparin 40 MG/0.4 ML SYRINGE SQ SCH (05:17)
[2021-06-22 06:34] LABS: Alanine Aminotransferase 15 Units/L (7-52); Albumin 2.6 g/dL (3.5-5.7); Albumin/Globulin Ratio 0.8 (1.1-2.2); Alkaline Phosphatase 73 Units/L (34-104); Aspartate Amino Transferase 46 Units/L (13-39); BUN/Creatinine Ratio 24 (6-26); Bilirubin,Total 2.6 mg/dL (0.3-1.0); Blood Urea Nitrogen 9 mg/dL (8-23); Calcium 8.1 mg/dL (8.6-10.3); Carbon Dioxide 23 mEq/L (23-29); Chloride 106 mEq/L (98-107); Globulin 3.2 g/dL (2.4-3.5); Glucose 90 mg/dL (70-105); Osmolality,Calculated 282 (280-300); Potassium 3.8 mEq/L (3.5-5.1); Sodium 137 mEq/L (136-145); Total Protein 5.8 g/dL (6.4-8.9); eGFR For African Americans > 60 (> 60); eGFR For Non-African Americans > 60 (> 60)
[2021-06-22] MEDS: Furosemide 40 MG/4 ML VIAL IVP SCH (08:18)
[2021-06-22] MEDS: Multivit/Ca/Min/Fe/FA 1 TAB TABLET PO SCH (08:19)
[2021-06-22] MEDS: Lactulose Oral Soln 20 GM/30 ML UDC PO SCH ×4 (08:19→19:50)
[2021-06-22] MEDS: *HR* Metformin 500 MG TABLET PO SCH ×2 (08:19→19:50)
[2021-06-22] MEDS: PARoxetine 20 MG TABLET PO SCH (08:20)
[2021-06-22] MEDS: Loratadine 10 MG TABLET PO SCH (08:20)
[2021-06-22] MEDS: Aspirin Enteric Coated 325 MG Tablet PO SCH (08:20)
[2021-06-22 09:47] LABS: VBG Ionized Calcium 1.24 mmol/L (1.15-1.35)
[2021-06-23] MEDS: *HR* Enoxaparin 40 MG/0.4 ML SYRINGE SQ SCH (06:02)
[2021-06-23 06:14] LABS: Basophils # 0.1 K/mcL (0.0-0.2); Eosinophils # 0.3 K/mcL (0.0-0.6); Eosinophils % 4.8 %; Hematocrit 26.8 % (35.3-44.9); Hemoglobin 8.9 g/dL (11.5-15.4); Immature Granulocytes % 0.8 % (0-4); Lymphocytes # 1.6 K/mcL (0.6-4.6); Lymphocytes % 25.2 %; Mean Corpuscular HGB Conc 33.2 g/dL (31.6-35.5); Mean Corpuscular Hemoglobin 35.7 pg (28.0-33.3); Mean Corpuscular Volume 107.6 fL (83.0-100.0); Mean Platelet Volume 9.9 fL (9.4-12.4); Monocytes # 0.8 K/mcL (0.0-1.3); Monocytes % 12.4 %; Neutrophils # 3.5 K/mcL (1.6-8.9); Platelet Count 113 K/mcL (140-400); Red Blood Count 2.49 M/mcL (3.82-4.97); Red Cell Distribution Width 17.2 % (11.5-14.5); Segmented Neutrophils % 55.8 %; White Blood Count 6.3 K/mcL (4.3-11.1)
[2021-06-23 06:41] LABS: BUN/Creatinine Ratio 23 (6-26); Blood Urea Nitrogen 8 mg/dL (8-23); Calcium 8.2 mg/dL (8.6-10.3); Carbon Dioxide 28 mEq/L (23-29); Chloride 106 mEq/L (98-107); Glucose 93 mg/dL (70-105); Osmolality,Calculated 288 (280-300); Potassium 3.3 mEq/L (3.5-5.1); Sodium 140 mEq/L (136-145); eGFR For African Americans > 60 (> 60); eGFR For Non-African Americans > 60 (> 60)
[2021-06-23] MEDS: *HR* Metformin 500 MG TABLET PO SCH ×2 (08:51→20:06)
[2021-06-23] MEDS: Multivit/Ca/Min/Fe/FA 1 TAB TABLET PO SCH (08:51)
[2021-06-23] MEDS: Loratadine 10 MG TABLET PO SCH (08:52)
[2021-06-23] MEDS: Aspirin Enteric Coated 325 MG Tablet PO SCH (08:52)
[2021-06-23] MEDS: Lactulose Oral Soln 20 GM/30 ML UDC PO SCH ×4 (08:53→20:06)
[2021-06-23] MEDS: PARoxetine 20 MG TABLET PO SCH (08:53)
[2021-06-23] MEDS: Furosemide 40 MG/4 ML VIAL IVP SCH (08:54)
[2021-06-23 18:04] LABS: Bilirubin,Urine Small (Negative); Blood,Urine Trace-intact (Negative); Clarity,Urine Clear (Clear); Color,Urine Yellow (Yellow); Glucose,Urine (UA) Normal (Normal); Ketones,Urine Trace mg/dL (Negative); Leukocyte Esterase,Urine Negative (Negative); Nitrite,Urine Negative (Negative); PH,Urine 7.5 pH Units (5.0-8.0); Protein,Urine Negative (Neg-Trace); Urobilinogen,Urine >=8.0 mg/dL (Normal)
[2021-06-24] MEDS: *HR* Enoxaparin 40 MG/0.4 ML SYRINGE SQ SCH (05:23)
[2021-06-24 06:21] LABS: Basophils # 0.1 K/mcL (0.0-0.2); Basophils % 0.8 %; Eosinophils # 0.2 K/mcL (0.0-0.6); Eosinophils % 4.1 %; Hematocrit 27.8 % (35.3-44.9); Hemoglobin 9.1 g/dL (11.5-15.4); Immature Granulocytes % 0.5 % (0-4); Lymphocytes # 1.8 K/mcL (0.6-4.6); Lymphocytes % 29.9 %; Mean Corpuscular HGB Conc 32.7 g/dL (31.6-35.5); Mean Corpuscular Hemoglobin 35.4 pg (28.0-33.3); Mean Corpuscular Volume 108.2 fL (83.0-100.0); Mean Platelet Volume 9.4 fL (9.4-12.4); Monocytes # 0.7 K/mcL (0.0-1.3); Monocytes % 11.8 %; Neutrophils # 3.1 K/mcL (1.6-8.9); Platelet Count 105 K/mcL (140-400); Red Blood Count 2.57 M/mcL (3.82-4.97); Red Cell Distribution Width 17.2 % (11.5-14.5); Segmented Neutrophils % 52.9 %; White Blood Count 5.9 K/mcL (4.3-11.1)
[2021-06-24 07:01] LABS: Alanine Aminotransferase 17 Units/L (7-52); Albumin 2.6 g/dL (3.5-5.7); Albumin/Globulin Ratio 0.8 (1.1-2.2); Alkaline Phosphatase 72 Units/L (34-104); Aspartate Amino Transferase 42 Units/L (13-39); BUN/Creatinine Ratio 18 (6-26); Bilirubin,Total 2.6 mg/dL (0.3-1.0); Blood Urea Nitrogen 7 mg/dL (8-23); Calcium 8.4 mg/dL (8.6-10.3); Carbon Dioxide 29 mEq/L (23-29); Chloride 106 mEq/L (98-107); Globulin 3.2 g/dL (2.4-3.5); Glucose 92 mg/dL (70-105); Osmolality,Calculated 288 (280-300); Potassium 3.6 mEq/L (3.5-5.1); Sodium 140 mEq/L (136-145); Total Protein 5.8 g/dL (6.4-8.9); eGFR For African Americans > 60 (> 60); eGFR For Non-African Americans > 60 (> 60)
[2021-06-24] MEDS: Loratadine 10 MG TABLET PO SCH (08:26)
[2021-06-24] MEDS: Furosemide 40 MG/4 ML VIAL IVP SCH (08:26)
[2021-06-24] MEDS: Multivit/Ca/Min/Fe/FA 1 TAB TABLET PO SCH (08:26)
[2021-06-24] MEDS: PARoxetine 20 MG TABLET PO SCH (08:26)
[2021-06-24] MEDS: Aspirin Enteric Coated 325 MG Tablet PO SCH (08:26)
[2021-06-24] MEDS: *HR* Metformin 500 MG TABLET PO SCH ×2 (08:26→22:17)
[2021-06-24] MEDS: Lactulose Oral Soln 20 GM/30 ML UDC PO SCH ×4 (08:27→22:16)
[2021-06-25] MEDS: *HR* Enoxaparin 40 MG/0.4 ML SYRINGE SQ SCH (06:23)
[2021-06-25 06:34] LABS: Albumin 2.7 g/dL (3.5-5.7); Albumin/Globulin Ratio 0.8 (1.1-2.2); Bilirubin,Direct 0.8 mg/dL (0.0-0.2); Bilirubin,Indirect 1.7 mg/dL (0.0-1.0); Bilirubin,Total 2.5 mg/dL (0.3-1.0); Globulin 3.2 g/dL (2.4-3.5); Total Protein 5.9 g/dL (6.4-8.9)
[2021-06-25] MEDS: Aspirin Enteric Coated 325 MG Tablet PO SCH (08:24)
[2021-06-25] MEDS: Multivit/Ca/Min/Fe/FA 1 TAB TABLET PO SCH (08:24)
[2021-06-25] MEDS: *HR* Metformin 500 MG TABLET PO SCH ×2 (08:25→22:41)
[2021-06-25] MEDS: PARoxetine 20 MG TABLET PO SCH (08:25)
[2021-06-25] MEDS: Loratadine 10 MG TABLET PO SCH (08:25)
[2021-06-25] MEDS: Lactulose Oral Soln 20 GM/30 ML UDC PO SCH ×4 (08:26→22:41)
[2021-06-25] MEDS: Furosemide 40 MG/4 ML VIAL IVP SCH (08:26)
[2021-06-26 04:59] LABS: Basophils # 0.1 K/mcL (0.0-0.2); Basophils % 0.9 %; Eosinophils # 0.2 K/mcL (0.0-0.6); Eosinophils % 3.2 %; Hematocrit 27.5 % (35.3-44.9); Hemoglobin 9.1 g/dL (11.5-15.4); Immature Granulocytes % 0.2 % (0-4); Lymphocytes # 1.4 K/mcL (0.6-4.6); Lymphocytes % 23.2 %; Mean Corpuscular HGB Conc 33.1 g/dL (31.6-35.5); Mean Corpuscular Hemoglobin 35.7 pg (28.0-33.3); Mean Corpuscular Volume 107.8 fL (83.0-100.0); Monocytes # 0.6 K/mcL (0.0-1.3); Monocytes % 9.6 %; Neutrophils # 3.7 K/mcL (1.6-8.9); Red Blood Count 2.55 M/mcL (3.82-4.97); Red Cell Distribution Width 16.8 % (11.5-14.5); Segmented Neutrophils % 62.9 %; White Blood Count 5.9 K/mcL (4.3-11.1)
[2021-06-26 05:06] LABS: Platelet Count 96 K/mcL (140-400)
[2021-06-26] MEDS: *HR* Enoxaparin 40 MG/0.4 ML SYRINGE SQ SCH (05:09)
[2021-06-26 05:17] LABS: Alanine Aminotransferase 18 Units/L (7-52); Albumin 2.6 g/dL (3.5-5.7); Albumin/Globulin Ratio 0.8 (1.1-2.2); Alkaline Phosphatase 73 Units/L (34-104); Aspartate Amino Transferase 48 Units/L (13-39); BUN/Creatinine Ratio 20 (6-26); Bilirubin,Direct 0.8 mg/dL (0.0-0.2); Bilirubin,Indirect 1.9 mg/dL (0.0-1.0); Bilirubin,Total 2.7 mg/dL (0.3-1.0); Blood Urea Nitrogen 8 mg/dL (8-23); Calcium 8.7 mg/dL (8.6-10.3); Carbon Dioxide 27 mEq/L (23-29); Chloride 108 mEq/L (98-107); Globulin 3.3 g/dL (2.4-3.5); Glucose 104 mg/dL (70-105); Osmolality,Calculated 291 (280-300); Potassium 3.9 mEq/L (3.5-5.1); Sodium 141 mEq/L (136-145); Total Protein 5.9 g/dL (6.4-8.9); eGFR For African Americans > 60 (> 60); eGFR For Non-African Americans > 60 (> 60)
[2021-06-26] MEDS: Lactulose Oral Soln 20 GM/30 ML UDC PO SCH ×4 (09:47→20:22)
[2021-06-26] MEDS: *HR* Metformin 500 MG TABLET PO SCH ×2 (09:47→20:22)
[2021-06-26] MEDS: Multivit/Ca/Min/Fe/FA 1 TAB TABLET PO SCH (09:48)
[2021-06-26] MEDS: Aspirin Enteric Coated 325 MG Tablet PO SCH (09:48)
[2021-06-26] MEDS: Loratadine 10 MG TABLET PO SCH (09:48)
[2021-06-26] MEDS: PARoxetine 20 MG TABLET PO SCH (09:48)
[2021-06-26] MEDS: Furosemide 40 MG/4 ML VIAL IVP SCH (09:49)
[2021-06-27] MEDS: *HR* Enoxaparin 40 MG/0.4 ML SYRINGE SQ SCH (04:55)
[2021-06-27 05:56] LABS: Basophils # 0.1 K/mcL (0.0-0.2); Basophils % 0.9 %; Eosinophils # 0.2 K/mcL (0.0-0.6); Eosinophils % 2.2 %; Hematocrit 28.7 % (35.3-44.9); Hemoglobin 9.6 g/dL (11.5-15.4); Immature Granulocytes % 0.3 % (0-4); Lymphocytes # 1.5 K/mcL (0.6-4.6); Lymphocytes % 21.8 %; Mean Corpuscular HGB Conc 33.4 g/dL (31.6-35.5); Mean Corpuscular Hemoglobin 35.3 pg (28.0-33.3); Mean Corpuscular Volume 105.5 fL (83.0-100.0); Mean Platelet Volume 10.4 fL (9.4-12.4); Monocytes # 0.7 K/mcL (0.0-1.3); Monocytes % 10.1 %; Neutrophils # 4.4 K/mcL (1.6-8.9); Platelet Count 106 K/mcL (140-400); Red Blood Count 2.72 M/mcL (3.82-4.97); Red Cell Distribution Width 16.5 % (11.5-14.5); Segmented Neutrophils % 64.7 %; White Blood Count 6.8 K/mcL (4.3-11.1)
[2021-06-27 06:09] LABS: Alanine Aminotransferase 19 Units/L (7-52); Albumin 2.7 g/dL (3.5-5.7); Albumin/Globulin Ratio 0.8 (1.1-2.2); Alkaline Phosphatase 68 Units/L (34-104); Aspartate Amino Transferase 49 Units/L (13-39); BUN/Creatinine Ratio 20 (6-26); Bilirubin,Direct 0.9 mg/dL (0.0-0.2); Bilirubin,Indirect 2.1 mg/dL (0.0-1.0); Blood Urea Nitrogen 8 mg/dL (8-23); Calcium 8.7 mg/dL (8.6-10.3); Carbon Dioxide 27 mEq/L (23-29); Chloride 107 mEq/L (98-107); Globulin 3.2 g/dL (2.4-3.5); Glucose 101 mg/dL (70-105); Osmolality,Calculated 286 (280-300); Potassium 3.7 mEq/L (3.5-5.1); Sodium 139 mEq/L (136-145); Total Protein 5.9 g/dL (6.4-8.9); eGFR For African Americans > 60 (> 60); eGFR For Non-African Americans > 60 (> 60)
[2021-06-27] MEDS: Lactulose Oral Soln 20 GM/30 ML UDC PO SCH ×4 (08:32→20:16)
[2021-06-27] MEDS: Aspirin Enteric Coated 325 MG Tablet PO SCH (08:33)
[2021-06-27] MEDS: Loratadine 10 MG TABLET PO SCH (08:33)
[2021-06-27] MEDS: PARoxetine 20 MG TABLET PO SCH (08:33)
[2021-06-27] MEDS: Multivit/Ca/Min/Fe/FA 1 TAB TABLET PO SCH (08:33)
[2021-06-27] MEDS: *HR* Metformin 500 MG TABLET PO SCH ×2 (08:33→20:17)
[2021-06-27] MEDS: Furosemide 40 MG/4 ML VIAL IVP SCH (08:34)
[2021-06-27 13:29] LABS: Bilirubin,Urine Negative (Negative); Blood,Urine Moderate (Negative); Clarity,Urine Clear (Clear); Color,Urine Yellow (Yellow); Glucose,Urine (UA) Normal (Normal); Ketones,Urine Negative (Negative); Leukocyte Esterase,Urine Negative (Negative); Nitrite,Urine Negative (Negative); Protein,Urine Negative (Neg-Trace); Urobilinogen,Urine Normal (Normal)
[2021-06-27 13:38] LABS: Squamous Epithelial Cell,Urine Few per hpf (None-Few)
[2021-06-28] MEDS ORDERED: Furosemide 40 MG/4 ML VIAL IVP SCH (04:00)
[2021-06-28 05:02] LABS: Basophils # 0.1 K/mcL (0.0-0.2); Basophils % 0.8 %; Eosinophils # 0.2 K/mcL (0.0-0.6); Eosinophils % 2.3 %; Hemoglobin 9.5 g/dL (11.5-15.4); Immature Granulocytes % 0.4 % (0-4); Lymphocytes # 1.8 K/mcL (0.6-4.6); Lymphocytes % 22.9 %; Mean Corpuscular HGB Conc 32.8 g/dL (31.6-35.5); Mean Corpuscular Hemoglobin 34.7 pg (28.0-33.3); Mean Corpuscular Volume 105.8 fL (83.0-100.0); Mean Platelet Volume 9.7 fL (9.4-12.4); Monocytes # 0.8 K/mcL (0.0-1.3); Neutrophils # 5.1 K/mcL (1.6-8.9); Platelet Count 101 K/mcL (140-400); Red Blood Count 2.74 M/mcL (3.82-4.97); Red Cell Distribution Width 16.6 % (11.5-14.5); Segmented Neutrophils % 63.6 %; White Blood Count 7.9 K/mcL (4.3-11.1)
[2021-06-28] MEDS: *HR* Enoxaparin 40 MG/0.4 ML SYRINGE SQ SCH (05:07)
[2021-06-28 05:14] LABS: Alanine Aminotransferase 19 Units/L (7-52); Albumin 2.7 g/dL (3.5-5.7); Albumin/Globulin Ratio 0.8 (1.1-2.2); Alkaline Phosphatase 76 Units/L (34-104); Aspartate Amino Transferase 52 Units/L (13-39); BUN/Creatinine Ratio 16 (6-26); Bilirubin,Direct 0.9 mg/dL (0.0-0.2); Bilirubin,Total 2.9 mg/dL (0.3-1.0); Blood Urea Nitrogen 8 mg/dL (8-23); Calcium 9.5 mg/dL (8.6-10.3); Carbon Dioxide 25 mEq/L (23-29); Chloride 106 mEq/L (98-107); Globulin 3.3 g/dL (2.4-3.5); Glucose 100 mg/dL (70-105); Osmolality,Calculated 286 (280-300); Potassium 3.6 mEq/L (3.5-5.1); Sodium 139 mEq/L (136-145); eGFR For African Americans > 60 (> 60); eGFR For Non-African Americans > 60 (> 60)
[2021-06-28] MEDS: Multivit/Ca/Min/Fe/FA 1 TAB TABLET PO SCH (07:55)
[2021-06-28] MEDS: Lactulose Oral Soln 20 GM/30 ML UDC PO SCH ×4 (07:55→20:09)
[2021-06-28] MEDS: Aspirin Enteric Coated 325 MG Tablet PO SCH (07:55)
[2021-06-28] MEDS: Loratadine 10 MG TABLET PO SCH (07:56)
[2021-06-28] MEDS: PARoxetine 20 MG TABLET PO SCH (07:56)
[2021-06-28] MEDS: *HR* Metformin 500 MG TABLET PO SCH ×2 (07:56→20:09)
[2021-06-28 17:09] LABS: Bilirubin,Urine Small (Negative); Blood,Urine Negative (Negative); Clarity,Urine Clear (Clear); Color,Urine Yellow (Yellow); Glucose,Urine (UA) Normal (Normal); Ketones,Urine 15 mg/dL (Negative); Leukocyte Esterase,Urine Negative (Negative); Nitrite,Urine Negative (Negative); Protein,Urine Trace mg/dL (Neg-Trace); Specific Gravity,Urine >= 1.030 (1.010-1.025); Urobilinogen,Urine Normal (Normal)
[2021-06-29] MEDS: *HR* Enoxaparin 40 MG/0.4 ML SYRINGE SQ SCH (05:29)
[2021-06-29] MEDS: Multivit/Ca/Min/Fe/FA 1 TAB TABLET PO SCH (08:33)
[2021-06-29] MEDS: Aspirin Enteric Coated 325 MG Tablet PO SCH (08:33)
[2021-06-29] MEDS: Loratadine 10 MG TABLET PO SCH (08:34)
[2021-06-29] MEDS: PARoxetine 20 MG TABLET PO SCH (08:34)
[2021-06-29] MEDS: Lactulose Oral Soln 20 GM/30 ML UDC PO SCH ×4 (08:36→21:04)
[2021-06-29] MEDS: *HR* Metformin 500 MG TABLET PO SCH ×2 (08:38→21:03)
[2021-06-29] MEDS ORDERED: Furosemide 40 MG TABLET PO SCH (15:00)
[2021-06-30] MEDS: *HR* Enoxaparin 40 MG/0.4 ML SYRINGE SQ SCH (05:42)
[2021-06-30] MEDS: Lactulose Oral Soln 20 GM/30 ML UDC PO SCH ×4 (09:03→23:04)
[2021-06-30] MEDS: Aspirin Enteric Coated 325 MG Tablet PO SCH (09:04)
[2021-06-30] MEDS: *HR* Metformin 500 MG TABLET PO SCH ×2 (09:04→23:09)
[2021-06-30] MEDS: Loratadine 10 MG TABLET PO SCH (09:04)
[2021-06-30] MEDS: Multivit/Ca/Min/Fe/FA 1 TAB TABLET PO SCH (09:04)
[2021-06-30] MEDS: PARoxetine 20 MG TABLET PO SCH (09:04)
[2021-06-30] MEDS: Furosemide 40 MG TABLET PO SCH (15:45)
[2021-07-01] MEDS: *HR* Enoxaparin 40 MG/0.4 ML SYRINGE SQ SCH (05:25)
[2021-07-01] MEDS: Lactulose Oral Soln 20 GM/30 ML UDC PO SCH ×4 (08:57→20:23)
[2021-07-01] MEDS: Loratadine 10 MG TABLET PO SCH (08:58)
[2021-07-01] MEDS: Aspirin Enteric Coated 325 MG Tablet PO SCH (08:58)
[2021-07-01] MEDS: Furosemide 40 MG TABLET PO SCH (08:58)
[2021-07-01] MEDS: PARoxetine 20 MG TABLET PO SCH (08:58)
[2021-07-01] MEDS: *HR* Metformin 500 MG TABLET PO SCH ×2 (08:58→20:22)
[2021-07-01] MEDS: Multivit/Ca/Min/Fe/FA 1 TAB TABLET PO SCH (08:58)
[2021-07-02] MEDS: *HR* Enoxaparin 40 MG/0.4 ML SYRINGE SQ SCH (05:27)
[2021-07-02] MEDS: Loratadine 10 MG TABLET PO SCH (08:19)
[2021-07-02] MEDS: PARoxetine 20 MG TABLET PO SCH (08:19)
[2021-07-02] MEDS: Multivit/Ca/Min/Fe/FA 1 TAB TABLET PO SCH (08:19)
[2021-07-02] MEDS: *HR* Metformin 500 MG TABLET PO SCH ×2 (08:19→20:07)
[2021-07-02] MEDS: Aspirin Enteric Coated 325 MG Tablet PO SCH (08:19)
[2021-07-02] MEDS: Lactulose Oral Soln 20 GM/30 ML UDC PO SCH ×4 (08:19→20:07)
[2021-07-02] MEDS: Furosemide 40 MG TABLET PO SCH (15:45)
[2021-07-03] MEDS: *HR* Enoxaparin 40 MG/0.4 ML SYRINGE SQ SCH (05:29)
[2021-07-03] MEDS: *HR* Metformin 500 MG TABLET PO SCH ×2 (07:52→21:59)
[2021-07-03] MEDS: Multivit/Ca/Min/Fe/FA 1 TAB TABLET PO SCH (07:52)
[2021-07-03] MEDS: Loratadine 10 MG TABLET PO SCH (07:52)
[2021-07-03] MEDS: PARoxetine 20 MG TABLET PO SCH (07:52)
[2021-07-03] MEDS: Lactulose Oral Soln 20 GM/30 ML UDC PO SCH ×4 (07:53→21:58)
[2021-07-03] MEDS: Aspirin Enteric Coated 325 MG Tablet PO SCH (07:53)
[2021-07-03 09:36] LABS: Basophils # 0.1 K/mcL (0.0-0.2); Basophils % 1.1 %; Eosinophils # 0.2 K/mcL (0.0-0.6); Eosinophils % 2.8 %; Hematocrit 29.8 % (35.3-44.9); Hemoglobin 9.9 g/dL (11.5-15.4); Immature Granulocytes % 0.4 % (0-4); Lymphocytes # 1.1 K/mcL (0.6-4.6); Lymphocytes % 18.6 %; Mean Corpuscular HGB Conc 33.2 g/dL (31.6-35.5); Mean Corpuscular Hemoglobin 35.6 pg (28.0-33.3); Mean Corpuscular Volume 107.2 fL (83.0-100.0); Mean Platelet Volume 10.4 fL (9.4-12.4); Monocytes # 0.6 K/mcL (0.0-1.3); Monocytes % 10.6 %; Neutrophils # 3.8 K/mcL (1.6-8.9); Platelet Count 105 K/mcL (140-400); Red Blood Count 2.78 M/mcL (3.82-4.97); Red Cell Distribution Width 16.5 % (11.5-14.5); Segmented Neutrophils % 66.5 %; White Blood Count 5.6 K/mcL (4.3-11.1)
[2021-07-03 10:12] LABS: Alanine Aminotransferase 22 Units/L (7-52); Albumin/Globulin Ratio 0.9 (1.1-2.2); Alkaline Phosphatase 72 Units/L (34-104); Aspartate Amino Transferase 53 Units/L (13-39); BUN/Creatinine Ratio 13 (6-26); Bilirubin,Total 2.8 mg/dL (0.3-1.0); Blood Urea Nitrogen 7 mg/dL (8-23); Calcium 9.6 mg/dL (8.6-10.3); Carbon Dioxide 26 mEq/L (23-29); Chloride 106 mEq/L (98-107); Globulin 3.4 g/dL (2.4-3.5); Glucose 160 mg/dL (70-105); Osmolality,Calculated 293 (280-300); Potassium 3.5 mEq/L (3.5-5.1); Sodium 141 mEq/L (136-145); Total Protein 6.4 g/dL (6.4-8.9); eGFR For African Americans > 60 (> 60); eGFR For Non-African Americans > 60 (> 60)
[2021-07-03] MEDS: Furosemide 40 MG TABLET PO SCH (16:48)
[2021-07-04 05:03] LABS: Basophils # 0.1 K/mcL (0.0-0.2); Basophils % 0.9 %; Eosinophils # 0.2 K/mcL (0.0-0.6); Eosinophils % 3.5 %; Hemoglobin 8.9 g/dL (11.5-15.4); Immature Granulocytes % 0.2 % (0-4); Lymphocytes # 1.6 K/mcL (0.6-4.6); Lymphocytes % 29.5 %; Mean Corpuscular Hemoglobin 35.3 pg (28.0-33.3); Mean Corpuscular Volume 107.1 fL (83.0-100.0); Monocytes # 0.7 K/mcL (0.0-1.3); Monocytes % 13.7 %; Neutrophils # 2.8 K/mcL (1.6-8.9); Red Blood Count 2.52 M/mcL (3.82-4.97); Red Cell Distribution Width 16.5 % (11.5-14.5); Segmented Neutrophils % 52.2 %; White Blood Count 5.4 K/mcL (4.3-11.1)
[2021-07-04 05:06] LABS: Platelet Count 94 K/mcL (140-400)
[2021-07-04 05:22] LABS: Alanine Aminotransferase 20 Units/L (7-52); Albumin 2.6 g/dL (3.5-5.7); Albumin/Globulin Ratio 0.8 (1.1-2.2); Alkaline Phosphatase 66 Units/L (34-104); Aspartate Amino Transferase 44 Units/L (13-39); BUN/Creatinine Ratio 17 (6-26); Bilirubin,Total 2.3 mg/dL (0.3-1.0); Blood Urea Nitrogen 9 mg/dL (8-23); Calcium 8.9 mg/dL (8.6-10.3); Carbon Dioxide 26 mEq/L (23-29); Chloride 107 mEq/L (98-107); Globulin 3.1 g/dL (2.4-3.5); Glucose 101 mg/dL (70-105); Osmolality,Calculated 293 (280-300); Potassium 3.4 mEq/L (3.5-5.1); Sodium 142 mEq/L (136-145); Total Protein 5.7 g/dL (6.4-8.9); eGFR For African Americans > 60 (> 60); eGFR For Non-African Americans > 60 (> 60)
[2021-07-04] MEDS: *HR* Enoxaparin 40 MG/0.4 ML SYRINGE SQ SCH (06:38)
[2021-07-04] MEDS: PARoxetine 20 MG TABLET PO SCH (08:10)
[2021-07-04] MEDS: *HR* Metformin 500 MG TABLET PO SCH ×2 (08:10→21:49)
[2021-07-04] MEDS: Loratadine 10 MG TABLET PO SCH (08:10)
[2021-07-04] MEDS: Lactulose Oral Soln 20 GM/30 ML UDC PO SCH ×4 (08:11→21:51)
[2021-07-04] MEDS: Aspirin Enteric Coated 325 MG Tablet PO SCH (08:11)
[2021-07-04] MEDS: Multivit/Ca/Min/Fe/FA 1 TAB TABLET PO SCH (08:11)
[2021-07-04] MEDS: Furosemide 40 MG TABLET PO SCH (17:40)
[2021-07-05 04:40] LABS: Basophils # 0.1 K/mcL (0.0-0.2); Basophils % 0.9 %; Eosinophils # 0.2 K/mcL (0.0-0.6); Eosinophils % 2.7 %; Hematocrit 27.5 % (35.3-44.9); Hemoglobin 9.2 g/dL (11.5-15.4); Immature Granulocytes % 0.2 % (0-4); Lymphocytes # 1.3 K/mcL (0.6-4.6); Lymphocytes % 23.8 %; Mean Corpuscular HGB Conc 33.5 g/dL (31.6-35.5); Mean Corpuscular Hemoglobin 35.8 pg (28.0-33.3); Mean Platelet Volume 10.7 fL (9.4-12.4); Monocytes # 0.7 K/mcL (0.0-1.3); Monocytes % 12.5 %; Neutrophils # 3.3 K/mcL (1.6-8.9); Red Blood Count 2.57 M/mcL (3.82-4.97); Red Cell Distribution Width 16.5 % (11.5-14.5); Segmented Neutrophils % 59.9 %; White Blood Count 5.5 K/mcL (4.3-11.1)
[2021-07-05 04:47] LABS: Platelet Count 91 K/mcL (140-400)
[2021-07-05 04:52] LABS: Alanine Aminotransferase 22 Units/L (7-52); Albumin 2.8 g/dL (3.5-5.7); Albumin/Globulin Ratio 0.9 (1.1-2.2); Alkaline Phosphatase 67 Units/L (34-104); Aspartate Amino Transferase 46 Units/L (13-39); BUN/Creatinine Ratio 15 (6-26); Bilirubin,Total 2.4 mg/dL (0.3-1.0); Blood Urea Nitrogen 9 mg/dL (8-23); Calcium 9.3 mg/dL (8.6-10.3); Carbon Dioxide 24 mEq/L (23-29); Chloride 105 mEq/L (98-107); Globulin 3.2 g/dL (2.4-3.5); Glucose 113 mg/dL (70-105); Osmolality,Calculated 287 (280-300); Potassium 3.6 mEq/L (3.5-5.1); Sodium 139 mEq/L (136-145); eGFR For African Americans > 60 (> 60); eGFR For Non-African Americans > 60 (> 60)
[2021-07-05] MEDS: *HR* Enoxaparin 40 MG/0.4 ML SYRINGE SQ SCH (05:15)
[2021-07-05] MEDS: Loratadine 10 MG TABLET PO SCH (08:04)
[2021-07-05] MEDS: Lactulose Oral Soln 20 GM/30 ML UDC PO SCH ×4 (08:05→20:39)
[2021-07-05] MEDS: PARoxetine 20 MG TABLET PO SCH (08:06)
[2021-07-05] MEDS: Multivit/Ca/Min/Fe/FA 1 TAB TABLET PO SCH (08:06)
[2021-07-05] MEDS: *HR* Metformin 500 MG TABLET PO SCH ×2 (08:07→20:40)
[2021-07-05] MEDS: Aspirin Enteric Coated 325 MG Tablet PO SCH (08:07)
[2021-07-05] MEDS ORDERED: Lactulose Oral Soln 20 GM/30 ML UDC PO ONE (15:00)
[2021-07-05] MEDS: Furosemide 40 MG TABLET PO SCH (16:57)
[2021-07-06] MEDS: *HR* Enoxaparin 40 MG/0.4 ML SYRINGE SQ SCH (04:47)
[2021-07-06 08:10] LABS: Alanine Aminotransferase 22 Units/L (7-52); Albumin 2.7 g/dL (3.5-5.7); Albumin/Globulin Ratio 0.9 (1.1-2.2); Alkaline Phosphatase 64 Units/L (34-104); Aspartate Amino Transferase 45 Units/L (13-39); BUN/Creatinine Ratio 16 (6-26); Bilirubin,Total 2.4 mg/dL (0.3-1.0); Blood Urea Nitrogen 8 mg/dL (8-23); Calcium 9.1 mg/dL (8.6-10.3); Carbon Dioxide 25 mEq/L (23-29); Chloride 105 mEq/L (98-107); Globulin 3.1 g/dL (2.4-3.5); Glucose 105 mg/dL (70-105); Osmolality,Calculated 289 (280-300); Potassium 3.2 mEq/L (3.5-5.1); Sodium 140 mEq/L (136-145); Total Protein 5.8 g/dL (6.4-8.9); eGFR For African Americans > 60 (> 60); eGFR For Non-African Americans > 60 (> 60)
[2021-07-06] MEDS: Aspirin Enteric Coated 325 MG Tablet PO SCH (09:13)
[2021-07-06] MEDS: Loratadine 10 MG TABLET PO SCH (09:13)
[2021-07-06] MEDS: Lactulose Oral Soln 20 GM/30 ML UDC PO SCH ×4 (09:14→21:51)
[2021-07-06] MEDS: *HR* Metformin 500 MG TABLET PO SCH ×2 (09:14→21:51)
[2021-07-06] MEDS: PARoxetine 20 MG TABLET PO SCH (09:14)
[2021-07-06] MEDS: Multivit/Ca/Min/Fe/FA 1 TAB TABLET PO SCH (09:14)
[2021-07-06] MEDS: Furosemide 40 MG TABLET PO SCH (15:23)
[2021-07-07 06:27] LABS: Basophils # 0.1 K/mcL (0.0-0.2); Basophils % 0.9 %; Eosinophils # 0.2 K/mcL (0.0-0.6); Eosinophils % 3.6 %; Hematocrit 29.6 % (35.3-44.9); Hemoglobin 9.8 g/dL (11.5-15.4); Immature Granulocytes % 0.2 % (0-4); Lymphocytes # 1.6 K/mcL (0.6-4.6); Lymphocytes % 28.3 %; Mean Corpuscular HGB Conc 33.1 g/dL (31.6-35.5); Mean Corpuscular Hemoglobin 35.4 pg (28.0-33.3); Mean Corpuscular Volume 106.9 fL (83.0-100.0); Mean Platelet Volume 10.5 fL (9.4-12.4); Monocytes # 0.6 K/mcL (0.0-1.3); Monocytes % 10.9 %; Neutrophils # 3.3 K/mcL (1.6-8.9); Red Blood Count 2.77 M/mcL (3.82-4.97); Red Cell Distribution Width 16.4 % (11.5-14.5); Segmented Neutrophils % 56.1 %; White Blood Count 5.8 K/mcL (4.3-11.1)
[2021-07-07 06:30] LABS: Platelet Count 93 K/mcL (140-400)
[2021-07-07 06:39] LABS: Alanine Aminotransferase 24 Units/L (7-52); Albumin 2.9 g/dL (3.5-5.7); Albumin/Globulin Ratio 0.9 (1.1-2.2); Alkaline Phosphatase 75 Units/L (34-104); Aspartate Amino Transferase 53 Units/L (13-39); BUN/Creatinine Ratio 16 (6-26); Bilirubin,Total 2.3 mg/dL (0.3-1.0); Blood Urea Nitrogen 8 mg/dL (8-23); Calcium 9.3 mg/dL (8.6-10.3); Carbon Dioxide 27 mEq/L (23-29); Chloride 102 mEq/L (98-107); Globulin 3.3 g/dL (2.4-3.5); Glucose 113 mg/dL (70-105); Osmolality,Calculated 285 (280-300); Potassium 3.5 mEq/L (3.5-5.1); Sodium 138 mEq/L (136-145); Total Protein 6.2 g/dL (6.4-8.9); eGFR For African Americans > 60 (> 60); eGFR For Non-African Americans > 60 (> 60)
[2021-07-07 07:33] VITALS: RESP 18
[2021-07-07 07:47] LABS: Ovalocytes 1+ (Not Present); Platelet Estimate Decreased (Normal)
[2021-07-07] MEDS: Lactulose Oral Soln 20 GM/30 ML UDC PO SCH ×2 (08:10→13:47)
[2021-07-07] MEDS: Multivit/Ca/Min/Fe/FA 1 TAB TABLET PO SCH (08:11)
[2021-07-07] MEDS: Loratadine 10 MG TABLET PO SCH (08:11)
[2021-07-07] MEDS: PARoxetine 20 MG TABLET PO SCH (08:11)
[2021-07-07] MEDS: *HR* Metformin 500 MG TABLET PO SCH (08:11)
[2021-07-07] MEDS: Aspirin Enteric Coated 325 MG Tablet PO SCH (08:11)
[2021-07-07 11:59] VITALS: BP 128/65; PULSE 75; TEMP 97.8; O2SAT 98
== END 2021-07-07 14:30 | disposition home health service (06) ==
LOC: INPGRE 06-21 12:16
PROVIDERS: ADMIT Family Medicine; ATTEND Family Medicine

== ENCOUNTER 2021-07-12 13:05 | Observation (INO) ==
[2021-07-12 14:13] LABS: Basophils % 0.8 %; Eosinophils # 0.2 K/mcL (0.0-0.6); Eosinophils % 4.2 %; Hematocrit 29.6 % (35.3-44.9); Hemoglobin 10.1 g/dL (11.5-15.4); Lymphocytes # 1.3 K/mcL (0.6-4.6); Lymphocytes % 26.8 %; Mean Corpuscular HGB Conc 34.1 g/dL (31.6-35.5); Mean Corpuscular Hemoglobin 35.9 pg (28.0-33.3); Mean Corpuscular Volume 105.3 fL (83.0-100.0); Monocytes # 0.8 K/mcL (0.0-1.3); Neutrophils # 2.5 K/mcL (1.6-8.9); Red Blood Count 2.81 M/mcL (3.82-4.97); Red Cell Distribution Width 16.2 % (11.5-14.5); Segmented Neutrophils % 52.2 %; White Blood Count 4.7 K/mcL (4.3-11.1)
[2021-07-12 14:15] LABS: Bilirubin,Urine Negative (Negative); Blood,Urine Small (Negative); Clarity,Urine Clear (Clear); Color,Urine Yellow (Yellow); Glucose,Urine (UA) Normal (Normal); Ketones,Urine Negative (Negative); Leukocyte Esterase,Urine Negative (Negative); Nitrite,Urine Negative (Negative); Protein,Urine Negative (Neg-Trace); Urobilinogen,Urine Normal (Normal)
[2021-07-12 14:17] LABS: Squamous Epithelial Cell,Urine Few per hpf (None-Few); WBC,Urine 0-3 per hpf (0-3)
[2021-07-12 14:20] LABS: Platelet Count 90 K/mcL (140-400)
[2021-07-12 14:29] LABS: Alanine Aminotransferase 27 Units/L (7-52); Albumin 2.9 g/dL (3.5-5.7); Albumin/Globulin Ratio 0.8 (1.1-2.2); Alkaline Phosphatase 78 Units/L (34-104); Aspartate Amino Transferase 60 Units/L (13-39); BUN/Creatinine Ratio 12 (6-26); Bilirubin,Total 2.3 mg/dL (0.3-1.0); Blood Urea Nitrogen 7 mg/dL (8-23); Calcium 8.7 mg/dL (8.6-10.3); Carbon Dioxide 28 mEq/L (23-29); Chloride 102 mEq/L (98-107); Globulin 3.5 g/dL (2.4-3.5); Glucose 159 mg/dL (70-105); Osmolality,Calculated 289 (280-300); Potassium 3.3 mEq/L (3.5-5.1); Sodium 139 mEq/L (136-145); Total Protein 6.4 g/dL (6.4-8.9); eGFR For African Americans > 60 (> 60); eGFR For Non-African Americans > 60 (> 60)
[2021-07-12] MEDS: Lactulose Oral Soln 20 GM/30 ML UDC PO SCH ×2 (17:20→20:29)
[2021-07-12] MEDS: *HR* Metformin 500 MG TABLET PO SCH (20:28)
[2021-07-13 06:10] LABS: Basophils % 0.8 %; Eosinophils # 0.2 K/mcL (0.0-0.6); Eosinophils % 4.6 %; Hematocrit 30.5 % (35.3-44.9); Hemoglobin 10.1 g/dL (11.5-15.4); Immature Granulocytes % 0.2 % (0-4); Lymphocytes # 1.5 K/mcL (0.6-4.6); Lymphocytes % 30.2 %; Mean Corpuscular HGB Conc 33.1 g/dL (31.6-35.5); Mean Corpuscular Hemoglobin 35.3 pg (28.0-33.3); Mean Corpuscular Volume 106.6 fL (83.0-100.0); Mean Platelet Volume 10.7 fL (9.4-12.4); Monocytes # 0.6 K/mcL (0.0-1.3); Monocytes % 12.1 %; Neutrophils # 2.6 K/mcL (1.6-8.9); Red Blood Count 2.86 M/mcL (3.82-4.97); Red Cell Distribution Width 16.1 % (11.5-14.5); Segmented Neutrophils % 52.1 %
[2021-07-13 06:26] LABS: BUN/Creatinine Ratio 15 (6-26); Blood Urea Nitrogen 7 mg/dL (8-23); Calcium 8.8 mg/dL (8.6-10.3); Carbon Dioxide 27 mEq/L (23-29); Chloride 104 mEq/L (98-107); Glucose 102 mg/dL (70-105); Osmolality,Calculated 288 (280-300); Potassium 3.5 mEq/L (3.5-5.1); Sodium 140 mEq/L (136-145); eGFR For African Americans > 60 (> 60); eGFR For Non-African Americans > 60 (> 60)
[2021-07-13 06:40] LABS: Platelet Count 84 K/mcL (140-400)
[2021-07-13] MEDS: *HR* Metformin 500 MG TABLET PO SCH ×2 (08:23→22:40)
[2021-07-13] MEDS: Aspirin Enteric Coated 325 MG Tablet PO SCH (08:24)
[2021-07-13] MEDS: Furosemide 40 MG TABLET PO SCH (08:24)
[2021-07-13] MEDS: Multivit/Ca/Min/Fe/FA 1 TAB TABLET PO SCH (08:24)
[2021-07-13] MEDS: PARoxetine 20 MG TABLET PO SCH (08:24)
[2021-07-13] MEDS: Loratadine 10 MG TABLET PO SCH (08:24)
[2021-07-13] MEDS: Lactulose Oral Soln 20 GM/30 ML UDC PO SCH ×4 (08:30→22:41)
[2021-07-14] MEDS: Lactulose Oral Soln 20 GM/30 ML UDC PO SCH ×4 (07:48→21:00)
[2021-07-14] MEDS: Furosemide 40 MG TABLET PO SCH (07:49)
[2021-07-14] MEDS: Loratadine 10 MG TABLET PO SCH (07:49)
[2021-07-14] MEDS: *HR* Metformin 500 MG TABLET PO SCH ×2 (07:49→20:59)
[2021-07-14] MEDS: PARoxetine 20 MG TABLET PO SCH (07:49)
[2021-07-14] MEDS: Aspirin Enteric Coated 325 MG Tablet PO SCH (07:49)
[2021-07-14] MEDS: Multivit/Ca/Min/Fe/FA 1 TAB TABLET PO SCH (07:49)
[2021-07-15 06:04] LABS: Basophils % 0.8 %; Eosinophils # 0.3 K/mcL (0.0-0.6); Eosinophils % 5.2 %; Hematocrit 28.9 % (35.3-44.9); Hemoglobin 9.9 g/dL (11.5-15.4); Immature Granulocytes % 0.2 % (0-4); Lymphocytes # 1.6 K/mcL (0.6-4.6); Lymphocytes % 33.1 %; Mean Corpuscular HGB Conc 34.3 g/dL (31.6-35.5); Mean Corpuscular Volume 105.1 fL (83.0-100.0); Mean Platelet Volume 10.4 fL (9.4-12.4); Monocytes # 0.6 K/mcL (0.0-1.3); Monocytes % 11.7 %; Neutrophils # 2.3 K/mcL (1.6-8.9); Red Blood Count 2.75 M/mcL (3.82-4.97); Red Cell Distribution Width 16.1 % (11.5-14.5); White Blood Count 4.8 K/mcL (4.3-11.1)
[2021-07-15 06:12] LABS: Platelet Count 77 K/mcL (140-400)
[2021-07-15 06:21] LABS: Alanine Aminotransferase 22 Units/L (7-52); Albumin 2.8 g/dL (3.5-5.7); Albumin/Globulin Ratio 0.9 (1.1-2.2); Alkaline Phosphatase 81 Units/L (34-104); Aspartate Amino Transferase 47 Units/L (13-39); BUN/Creatinine Ratio 19 (6-26); Blood Urea Nitrogen 8 mg/dL (8-23); Calcium 8.8 mg/dL (8.6-10.3); Carbon Dioxide 27 mEq/L (23-29); Chloride 104 mEq/L (98-107); Globulin 3.2 g/dL (2.4-3.5); Glucose 98 mg/dL (70-105); Osmolality,Calculated 286 (280-300); Potassium 3.5 mEq/L (3.5-5.1); Sodium 139 mEq/L (136-145); eGFR For African Americans > 60 (> 60); eGFR For Non-African Americans > 60 (> 60)
[2021-07-15] MEDS: Lactulose Oral Soln 20 GM/30 ML UDC PO SCH ×4 (10:13→20:13)
[2021-07-15] MEDS: *HR* Metformin 500 MG TABLET PO SCH ×2 (10:14→20:13)
[2021-07-15] MEDS: Furosemide 40 MG TABLET PO SCH (10:14)
[2021-07-15] MEDS: PARoxetine 20 MG TABLET PO SCH (10:15)
[2021-07-15] MEDS: Loratadine 10 MG TABLET PO SCH (10:15)
[2021-07-15] MEDS: Multivit/Ca/Min/Fe/FA 1 TAB TABLET PO SCH (10:15)
[2021-07-15] MEDS: Aspirin Enteric Coated 325 MG Tablet PO SCH (11:23)
[2021-07-16] MEDS: Multivit/Ca/Min/Fe/FA 1 TAB TABLET PO SCH (08:36)
[2021-07-16] MEDS: Loratadine 10 MG TABLET PO SCH (08:36)
[2021-07-16] MEDS: Furosemide 40 MG TABLET PO SCH (08:36)
[2021-07-16] MEDS: *HR* Metformin 500 MG TABLET PO SCH ×2 (08:36→20:57)
[2021-07-16] MEDS: Aspirin Enteric Coated 325 MG Tablet PO SCH (08:36)
[2021-07-16] MEDS: PARoxetine 20 MG TABLET PO SCH (08:37)
[2021-07-16] MEDS: Lactulose Oral Soln 20 GM/30 ML UDC PO SCH ×4 (08:41→20:58)
[2021-07-16] MEDS: Carbidopa/Levodopa 25/100 TABLET PO SCH (20:58)
[2021-07-17 05:28] LABS: Alanine Aminotransferase 20 Units/L (7-52); Albumin 2.9 g/dL (3.5-5.7); Albumin/Globulin Ratio 0.9 (1.1-2.2); Alkaline Phosphatase 78 Units/L (34-104); Aspartate Amino Transferase 50 Units/L (13-39); BUN/Creatinine Ratio 19 (6-26); Bilirubin,Total 2.2 mg/dL (0.3-1.0); Blood Urea Nitrogen 10 mg/dL (8-23); Carbon Dioxide 26 mEq/L (23-29); Chloride 105 mEq/L (98-107); Globulin 3.3 g/dL (2.4-3.5); Glucose 95 mg/dL (70-105); Osmolality,Calculated 293 (280-300); Potassium 3.5 mEq/L (3.5-5.1); Sodium 142 mEq/L (136-145); Total Protein 6.2 g/dL (6.4-8.9); eGFR For African Americans > 60 (> 60); eGFR For Non-African Americans > 60 (> 60)
[2021-07-17] MEDS: *HR* Metformin 500 MG TABLET PO SCH ×2 (08:14→20:15)
[2021-07-17] MEDS: PARoxetine 20 MG TABLET PO SCH (08:14)
[2021-07-17] MEDS: Loratadine 10 MG TABLET PO SCH (08:14)
[2021-07-17] MEDS: Furosemide 40 MG TABLET PO SCH (08:14)
[2021-07-17] MEDS: Carbidopa/Levodopa 25/100 TABLET PO SCH ×3 (08:14→20:15)
[2021-07-17] MEDS: Lactulose Oral Soln 20 GM/30 ML UDC PO SCH ×4 (08:14→20:14)
[2021-07-17] MEDS: Multivit/Ca/Min/Fe/FA 1 TAB TABLET PO SCH (08:14)
[2021-07-17] MEDS: Aspirin Enteric Coated 325 MG Tablet PO SCH (08:14)
[2021-07-18] MEDS: *HR* Metformin 500 MG TABLET PO SCH ×2 (08:25→20:07)
[2021-07-18] MEDS: Lactulose Oral Soln 20 GM/30 ML UDC PO SCH ×4 (08:25→20:07)
[2021-07-18] MEDS: Furosemide 40 MG TABLET PO SCH (08:26)
[2021-07-18] MEDS: Aspirin Enteric Coated 325 MG Tablet PO SCH (08:26)
[2021-07-18] MEDS: PARoxetine 20 MG TABLET PO SCH (08:26)
[2021-07-18] MEDS: Loratadine 10 MG TABLET PO SCH (08:26)
[2021-07-18] MEDS: Multivit/Ca/Min/Fe/FA 1 TAB TABLET PO SCH (08:26)
[2021-07-18] MEDS: Carbidopa/Levodopa 25/100 TABLET PO SCH ×3 (08:26→20:07)
[2021-07-18] MEDS: Ondansetron ODT 4 MG TAB.RAPDIS SL PRN ×2 (10:26→17:29)
[2021-07-18 10:39] LABS: Hematocrit 34.7 % (35.3-44.9); Hemoglobin 11.6 g/dL (11.5-15.4); Mean Corpuscular HGB Conc 33.4 g/dL (31.6-35.5); Mean Corpuscular Hemoglobin 34.8 pg (28.0-33.3); Mean Corpuscular Volume 104.2 fL (83.0-100.0); Mean Platelet Volume 11.1 fL (9.4-12.4); Platelet Count 100 K/mcL (140-400); Red Blood Count 3.33 M/mcL (3.82-4.97); Red Cell Distribution Width 15.7 % (11.5-14.5); White Blood Count 5.3 K/mcL (4.3-11.1)
[2021-07-18 10:52] LABS: Alanine Aminotransferase 15 Units/L (7-52); Albumin 3.4 g/dL (3.5-5.7); Albumin/Globulin Ratio 0.9 (1.1-2.2); Alkaline Phosphatase 88 Units/L (34-104); Aspartate Amino Transferase 59 Units/L (13-39); BUN/Creatinine Ratio 13 (6-26); Bilirubin,Total 2.7 mg/dL (0.3-1.0); Blood Urea Nitrogen 8 mg/dL (8-23); Calcium 9.2 mg/dL (8.6-10.3); Carbon Dioxide 30 mEq/L (23-29); Chloride 102 mEq/L (98-107); Globulin 3.8 g/dL (2.4-3.5); Glucose 144 mg/dL (70-105); Lipase 43 Units/L (11-82); Osmolality,Calculated 291 (280-300); Potassium 3.5 mEq/L (3.5-5.1); Sodium 140 mEq/L (136-145); Total Protein 7.2 g/dL (6.4-8.9); eGFR For African Americans > 60 (> 60); eGFR For Non-African Americans > 60 (> 60)
[2021-07-18 17:50] LABS: Bilirubin,Urine Negative (Negative); Blood,Urine Negative (Negative); Clarity,Urine Clear (Clear); Color,Urine Yellow (Yellow); Glucose,Urine (UA) Normal (Normal); Ketones,Urine Trace mg/dL (Negative); Leukocyte Esterase,Urine Negative (Negative); Nitrite,Urine Negative (Negative); Protein,Urine Negative (Neg-Trace); Specific Gravity,Urine 1.025 (1.010-1.025)
[2021-07-19 04:41] LABS: Hematocrit 29.6 % (35.3-44.9); Mean Corpuscular HGB Conc 34.1 g/dL (31.6-35.5); Mean Corpuscular Hemoglobin 35.7 pg (28.0-33.3); Mean Corpuscular Volume 104.6 fL (83.0-100.0); Mean Platelet Volume 11.1 fL (9.4-12.4); Red Blood Count 2.83 M/mcL (3.82-4.97); Red Cell Distribution Width 15.9 % (11.5-14.5); White Blood Count 7.9 K/mcL (4.3-11.1)
[2021-07-19 04:42] LABS: Platelet Count 90 K/mcL (140-400)
[2021-07-19 04:46] LABS: Hemoglobin 10.1 g/dL (11.5-15.4)
[2021-07-19 04:57] LABS: Alanine Aminotransferase 16 Units/L (7-52); Albumin 2.9 g/dL (3.5-5.7); Albumin/Globulin Ratio 0.9 (1.1-2.2); Alkaline Phosphatase 72 Units/L (34-104); Aspartate Amino Transferase 50 Units/L (13-39); BUN/Creatinine Ratio 14 (6-26); Bilirubin,Total 2.4 mg/dL (0.3-1.0); Blood Urea Nitrogen 8 mg/dL (8-23); Carbon Dioxide 26 mEq/L (23-29); Chloride 104 mEq/L (98-107); Globulin 3.1 g/dL (2.4-3.5); Glucose 102 mg/dL (70-105); Osmolality,Calculated 291 (280-300); Potassium 3.2 mEq/L (3.5-5.1); Sodium 141 mEq/L (136-145); eGFR For African Americans > 60 (> 60); eGFR For Non-African Americans > 60 (> 60)
[2021-07-19] MEDS: Ondansetron ODT 4 MG TAB.RAPDIS SL PRN ×2 (05:35→11:34)
[2021-07-19] MEDS: Loratadine 10 MG TABLET PO SCH (07:59)
[2021-07-19] MEDS: Aspirin Enteric Coated 325 MG Tablet PO SCH (07:59)
[2021-07-19] MEDS: *HR* Metformin 500 MG TABLET PO SCH (07:59)
[2021-07-19] MEDS: Furosemide 40 MG TABLET PO SCH (07:59)
[2021-07-19] MEDS: Multivit/Ca/Min/Fe/FA 1 TAB TABLET PO SCH (07:59)
[2021-07-19] MEDS: Carbidopa/Levodopa 25/100 TABLET PO SCH ×2 (08:00→11:34)
[2021-07-19] MEDS: PARoxetine 20 MG TABLET PO SCH (08:00)
[2021-07-19] MEDS: Lactulose Oral Soln 20 GM/30 ML UDC PO SCH ×2 (08:00→11:34)
[2021-07-19 08:01] VITALS: RESP 16
[2021-07-19 12:03] VITALS: BP 128/73; PULSE 68; TEMP 97.1; O2SAT 98
== END 2021-07-19 13:38 | disposition home health service (06) ==
LOC: EMEROOGRE 13:05 → INPGRE 13:05
PROVIDERS: ADMIT Family Medicine; ATTEND Family Medicine

== ENCOUNTER 2021-12-22 08:28 | Inpatient (IN) ==
[2021-12-22] MEDS ORDERED: 0.9 % Sodium Chloride 500 ML IVC ONE (08:41)
[2021-12-22 09:14] LABS: Basophils # 0.1 K/mcL (0.0-0.2); Basophils % 0.5 %; Eosinophils # 0.1 K/mcL (0.0-0.6); Eosinophils % 0.4 %; Hematocrit 32.9 % (35.3-44.9); Immature Granulocytes % 0.8 % (0-4); Lymphocytes # 1.3 K/mcL (0.6-4.6); Lymphocytes % 7.5 %; Mean Corpuscular HGB Conc 33.4 g/dL (31.6-35.5); Mean Corpuscular Hemoglobin 36.4 pg (28.0-33.3); Mean Corpuscular Volume 108.9 fL (83.0-100.0); Monocytes % 5.8 %; Red Blood Count 3.02 M/mcL (3.82-4.97); Red Cell Distribution Width 16.6 % (11.5-14.5); White Blood Count 17.1 K/mcL (4.3-11.1)
[2021-12-22 09:16] LABS: Bilirubin,Urine Small (Negative); Blood,Urine Trace-intact (Negative); Clarity,Urine Turbid (Clear); Glucose,Urine (UA) Normal (Normal); Ketones,Urine Negative (Negative); Leukocyte Esterase,Urine Small (Negative); Nitrite,Urine Negative (Negative); Protein,Urine Trace mg/dL (Neg-Trace); Specific Gravity,Urine 1.025 (1.010-1.025); Urobilinogen,Urine Normal (Normal)
[2021-12-22 09:18] LABS: Neutrophils # 14.5 K/mcL (1.6-8.9); Platelet Count 98 K/mcL (140-400)
[2021-12-22 09:20] LABS: VBG HCO3 22 mEq/L (21-27); VBG PCO2 28 mmHg (41-51); VBG PO2 160 mmHg (25-50)
[2021-12-22 09:21] LABS: INR 1.5
[2021-12-22 09:25] LABS: Color,Urine Dark-Yellow (Yellow)
[2021-12-22 09:26] LABS: Bacteria,Urine Many per hpf (None-Few); Squamous Epithelial Cell,Urine Few per hpf (None-Few)
[2021-12-22 09:27] LABS: Amphetamine Screen,Urine Negative ng/mL (Cutoff=1000); Barbiturate Screen,Urine Negative ng/mL (Cutoff=200); Benzodiazepines Screen,Urine Negative ng/mL (Cutoff=200); Cannabinoid Screen,Urine Negative ng/mL (Cutoff = 50); Cocaine Screen,Urine Negative ng/mL (Cutoff= 300); Opiate Screen,Urine Negative ng/mL (Cutoff=300); Phencyclidine Screen,Urine Negative ng/mL (Cutoff=25)
[2021-12-22 09:30] LABS: Alanine Aminotransferase 16 Units/L (7-52); Albumin 2.9 g/dL (3.5-5.7); Albumin/Globulin Ratio 0.8 (1.1-2.2); Alkaline Phosphatase 105 Units/L (34-104); Aspartate Amino Transferase 39 Units/L (13-39); BUN/Creatinine Ratio 16 (6-26); Bilirubin,Total 6.1 mg/dL (0.3-1.0); Blood Urea Nitrogen 11 mg/dL (8-23); Calcium 9.3 mg/dL (8.6-10.3); Carbon Dioxide 23 mEq/L (23-29); Chloride 104 mEq/L (98-107); Ethanol < 10 mg/dL (Less than 10); Globulin 3.6 g/dL (2.4-3.5); Glucose 153 mg/dL (70-105); Osmolality,Calculated 284 (280-300); Phosphorous 2.7 mg/dL (2.7-4.5); Potassium 3.9 mEq/L (3.5-5.1); Sodium 136 mEq/L (136-145); Total Protein 6.5 g/dL (6.4-8.9); eGFR For African Americans > 60 (> 60); eGFR For Non-African Americans > 60 (> 60)
[2021-12-22] MEDS ORDERED: cefTRIAXone 1,000 MG in 0.9 % Sodium Chloride Mini Bag 100 ML IVPB ONE (09:53)
[2021-12-22] MEDS ORDERED: 0.9 % Sodium Chloride 1,000 ML IVC SCH ×2 (10:00→11:30)
[2021-12-22] MEDS ORDERED: Naloxone 0.4 MG/ML INJ IVP PRN (11:24)
[2021-12-22] MEDS ORDERED: Ondansetron 4 MG/2 ML VIAL IVP PRN (11:24)
[2021-12-22] MEDS ORDERED: MOM Conc 10 ML UD.LIQ PO PRN (11:24)
[2021-12-22] MEDS ORDERED: Acetaminophen 325 MG TABLET PO PRN ×2 (11:24→11:52)
[2021-12-22] MEDS ORDERED: Mag Hydrox/Al Hydrox/Simeth 30 ML UDC PO PRN (11:24)
[2021-12-22] MEDS ORDERED: Ondansetron ODT 4 MG TAB.RAPDIS SL PRN (11:24)
[2021-12-22] MEDS ORDERED: Melatonin 3 MG TABLET PO PRN (11:24)
[2021-12-22] MEDS: Loratadine 10 MG TABLET PO SCH (13:46)
[2021-12-22] MEDS: Multivit/Ca/Min/Fe/FA 1 TAB TABLET PO SCH (13:47)
[2021-12-22] MEDS: PARoxetine 20 MG TABLET PO SCH (13:47)
[2021-12-22] MEDS: Fluticasone Propionate Nasal 50 MCG/SPRAY BOTTLE NS SCH (13:47)
[2021-12-22] MEDS: Lactulose Oral Soln 20 GM/30 ML UDC PO SCH ×2 (14:13→17:36)
[2021-12-22] MEDS: Carbidopa/Levodopa 25/100 TABLET PO SCH ×2 (14:13→15:11)
[2021-12-22] MEDS: 0.9 % Sodium Chloride 1,000 ML IVC SCH (15:11)
[2021-12-22] MEDS ORDERED: Ondansetron ODT 4 MG TAB.RAPDIS SL SCH (16:00)
[2021-12-22 20:09] LABS: ABG Base Excess -1 mEq/L (-2 to 3); ABG HCO3 22 mEq/L (21-27); ABG Oxygen Saturation 95 % (95-98); ABG PCO2 32 mmHg (35-45); ABG PH 7.46 pH Units (7.32-7.45); ABG PO2 73 mmHg (85-104); ABG TCO2 23 mEq/L (20-26)
[2021-12-23] MEDS: 0.9 % Sodium Chloride 1,000 ML IVC SCH ×2 (00:37→15:00)
[2021-12-23] MEDS: MetroNIDAZOLE 500 MG/100 ML 500 MG/100 ML BAG IVPB SCH ×3 (00:37→16:00)
[2021-12-23] MEDS: Carbidopa/Levodopa 25/100 TABLET PO SCH ×4 (04:36→21:02)
[2021-12-23] MEDS: Lactulose Oral Soln 20 GM/30 ML UDC PO SCH ×5 (04:36→21:01)
[2021-12-23 04:43] LABS: Hematocrit 28.1 % (35.3-44.9); Hemoglobin 9.7 g/dL (11.5-15.4); Mean Corpuscular HGB Conc 34.5 g/dL (31.6-35.5); Mean Corpuscular Hemoglobin 36.3 pg (28.0-33.3); Mean Corpuscular Volume 105.2 fL (83.0-100.0); Mean Platelet Volume 10.1 fL (9.4-12.4); Red Blood Count 2.67 M/mcL (3.82-4.97); Red Cell Distribution Width 16.4 % (11.5-14.5); White Blood Count 16.3 K/mcL (4.3-11.1)
[2021-12-23 04:45] LABS: Platelet Count 93 K/mcL (140-400)
[2021-12-23 05:00] LABS: Alanine Aminotransferase 18 Units/L (7-52); Albumin 2.4 g/dL (3.5-5.7); Albumin/Globulin Ratio 0.8 (1.1-2.2); Alkaline Phosphatase 98 Units/L (34-104); Aspartate Amino Transferase 31 Units/L (13-39); BUN/Creatinine Ratio 21 (6-26); Bilirubin,Total 5.4 mg/dL (0.3-1.0); Blood Urea Nitrogen 13 mg/dL (8-23); Calcium 8.4 mg/dL (8.6-10.3); Carbon Dioxide 23 mEq/L (23-29); Chloride 108 mEq/L (98-107); Globulin 3.1 g/dL (2.4-3.5); Glucose 138 mg/dL (70-105); Magnesium 1.8 mg/dL (1.6-2.6); Osmolality,Calculated 288 (280-300); Phosphorous 3.1 mg/dL (2.7-4.5); Potassium 3.3 mEq/L (3.5-5.1); Sodium 138 mEq/L (136-145); Total Protein 5.5 g/dL (6.4-8.9); eGFR For African Americans > 60 (> 60); eGFR For Non-African Americans > 60 (> 60)
[2021-12-23] MEDS: *HR* Enoxaparin 40 MG/0.4 ML SYRINGE SQ SCH (06:44)
[2021-12-23] MEDS: Aspirin Enteric Coated 325 MG Tablet PO SCH (11:39)
[2021-12-23] MEDS: Loratadine 10 MG TABLET PO SCH (11:39)
[2021-12-23] MEDS: Magnesium Oxide 400 MG TABLET PO SCH (11:40)
[2021-12-23] MEDS: Fluticasone Propionate Nasal 50 MCG/SPRAY BOTTLE NS SCH (11:40)
[2021-12-23] MEDS: Multivit/Ca/Min/Fe/FA 1 TAB TABLET PO SCH (11:40)
[2021-12-23] MEDS: PARoxetine 20 MG TABLET PO SCH (11:40)
[2021-12-23 11:46] LABS: ABG Base Excess -2 mEq/L (-2 to 3); ABG HCO3 21 mEq/L (21-27); ABG Oxygen Saturation 96 % (95-98); ABG PCO2 30 mmHg (35-45); ABG PH 7.44 pH Units (7.32-7.45); ABG PO2 78 mmHg (85-104); ABG TCO2 22 mEq/L (20-26)
[2021-12-23 13:25] LABS: Magnesium 1.8 mg/dL (1.6-2.6)
[2021-12-23] MEDS ORDERED: Lactulose 200 GM, Sodium Chloride IRRigation 700 ML RC ONE (17:00)
[2021-12-23] MEDS ORDERED: Potassium Chloride Elixir 20 MEQ/15 ML UDC PO ONE (20:45)
[2021-12-23] MEDS: Nystatin POWDER 30 GM BOTTLE TP SCH (21:02)
[2021-12-24] MEDS: MetroNIDAZOLE 500 MG/100 ML 500 MG/100 ML BAG IVPB SCH ×2 (00:32→08:38)
[2021-12-24 04:14] LABS: Basophils # 0.1 K/mcL (0.0-0.2); Basophils % 0.4 %; Eosinophils # 0.2 K/mcL (0.0-0.6); Eosinophils % 1.7 %; Hematocrit 27.2 % (35.3-44.9); Hemoglobin 9.2 g/dL (11.5-15.4); Immature Granulocytes % 0.9 % (0-4); Lymphocytes # 2.2 K/mcL (0.6-4.6); Lymphocytes % 15.8 %; Mean Corpuscular HGB Conc 33.8 g/dL (31.6-35.5); Mean Corpuscular Hemoglobin 36.1 pg (28.0-33.3); Mean Corpuscular Volume 106.7 fL (83.0-100.0); Mean Platelet Volume 9.9 fL (9.4-12.4); Monocytes # 1.3 K/mcL (0.0-1.3); Monocytes % 8.9 %; Neutrophils # 10.2 K/mcL (1.6-8.9); Platelet Count 103 K/mcL (140-400); Red Blood Count 2.55 M/mcL (3.82-4.97); Red Cell Distribution Width 16.5 % (11.5-14.5); Segmented Neutrophils % 72.3 %; White Blood Count 14.1 K/mcL (4.3-11.1)
[2021-12-24 04:28] LABS: Alanine Aminotransferase 14 Units/L (7-52); Albumin 2.2 g/dL (3.5-5.7); Albumin/Globulin Ratio 0.8 (1.1-2.2); Alkaline Phosphatase 92 Units/L (34-104); Aspartate Amino Transferase 28 Units/L (13-39); BUN/Creatinine Ratio 24 (6-26); Bilirubin,Total 4.6 mg/dL (0.3-1.0); Blood Urea Nitrogen 13 mg/dL (8-23); Calcium 8.2 mg/dL (8.6-10.3); Carbon Dioxide 23 mEq/L (23-29); Chloride 113 mEq/L (98-107); Globulin 2.9 g/dL (2.4-3.5); Glucose 110 mg/dL (70-105); Osmolality,Calculated 293 (280-300); Potassium 2.9 mEq/L (3.5-5.1); Sodium 141 mEq/L (136-145); Total Protein 5.1 g/dL (6.4-8.9); eGFR For African Americans > 60 (> 60); eGFR For Non-African Americans > 60 (> 60)
[2021-12-24] MEDS: 0.9 % Sodium Chloride 1,000 ML IVC SCH (04:34)
[2021-12-24] MEDS: *HR* Enoxaparin 40 MG/0.4 ML SYRINGE SQ SCH (04:35)
[2021-12-24] MEDS: Lactulose Oral Soln 20 GM/30 ML UDC PO SCH (08:36)
[2021-12-24] MEDS: PARoxetine 20 MG TABLET PO SCH (08:37)
[2021-12-24] MEDS: Aspirin Enteric Coated 325 MG Tablet PO SCH (08:37)
[2021-12-24] MEDS: Nystatin POWDER 30 GM BOTTLE TP SCH ×3 (08:37→21:01)
[2021-12-24] MEDS: Multivit/Ca/Min/Fe/FA 1 TAB TABLET PO SCH (08:37)
[2021-12-24] MEDS: Magnesium Oxide 400 MG TABLET PO SCH (08:37)
[2021-12-24] MEDS: Loratadine 10 MG TABLET PO SCH (08:37)
[2021-12-24] MEDS: Carbidopa/Levodopa 25/100 TABLET PO SCH ×3 (08:37→21:00)
[2021-12-24] MEDS: Potassium Chloride Elixir 20 MEQ/15 ML UDC PO ONE ×2 (08:54→08:57)
[2021-12-24] MEDS: Fluticasone Propionate Nasal 50 MCG/SPRAY BOTTLE NS SCH (09:01)
[2021-12-24] MEDS ORDERED: Saliva Stimulant 44.3ml BOTTLE PO PRN (11:17)
[2021-12-24] MEDS ORDERED: Lidocaine Viscous Oral Soln 15 ML SOLUTION MM PRN (11:18)
[2021-12-24] MEDS: Vancomycin Oral Soln 125 MG/2.5 ML UDC PO SCH ×3 (14:35→21:11)
[2021-12-24] MEDS ORDERED: Potassium Chloride Elixir 20 MEQ/15 ML UDC PO ONE (19:17)
[2021-12-24] MEDS: Lactobacillus 1 EACH CAP.SPRINK PO SCH (21:00)
[2021-12-25 04:45] LABS: Basophils # 0.1 K/mcL (0.0-0.2); Basophils % 0.9 %; Eosinophils # 0.5 K/mcL (0.0-0.6); Eosinophils % 4.1 %; Hematocrit 26.5 % (35.3-44.9); Immature Granulocytes % 2.3 % (0-4); Lymphocytes # 2.7 K/mcL (0.6-4.6); Lymphocytes % 23.5 %; Mean Corpuscular Hemoglobin 35.6 pg (28.0-33.3); Mean Corpuscular Volume 104.7 fL (83.0-100.0); Mean Platelet Volume 9.6 fL (9.4-12.4); Monocytes # 0.9 K/mcL (0.0-1.3); Monocytes % 8.2 %; Platelet Count 118 K/mcL (140-400); Red Blood Count 2.53 M/mcL (3.82-4.97); Red Cell Distribution Width 16.7 % (11.5-14.5); White Blood Count 11.5 K/mcL (4.3-11.1)
[2021-12-25 04:58] LABS: BUN/Creatinine Ratio 20 (6-26); Blood Urea Nitrogen 12 mg/dL (8-23); Calcium 8.3 mg/dL (8.6-10.3); Carbon Dioxide 21 mEq/L (23-29); Chloride 112 mEq/L (98-107); Glucose 100 mg/dL (70-105); Osmolality,Calculated 286 (280-300); Potassium 3.4 mEq/L (3.5-5.1); Sodium 138 mEq/L (136-145); eGFR For African Americans > 60 (> 60); eGFR For Non-African Americans > 60 (> 60)
[2021-12-25] MEDS: *HR* Enoxaparin 40 MG/0.4 ML SYRINGE SQ SCH (05:25)
[2021-12-25] MEDS: cefTRIAXone 1,000 MG in 0.9 % Sodium Chloride 10 ML IVP SCH (09:11)
[2021-12-25] MEDS: Carbidopa/Levodopa 25/100 TABLET PO SCH ×3 (09:16→23:55)
[2021-12-25] MEDS: Lactobacillus 1 EACH CAP.SPRINK PO SCH ×2 (09:16→23:55)
[2021-12-25] MEDS: Vancomycin Oral Soln 125 MG/2.5 ML UDC PO SCH ×4 (09:16→23:55)
[2021-12-25] MEDS: Magnesium Oxide 400 MG TABLET PO SCH (09:17)
[2021-12-25] MEDS: PARoxetine 20 MG TABLET PO SCH (09:17)
[2021-12-25] MEDS: Aspirin Enteric Coated 325 MG Tablet PO SCH (09:17)
[2021-12-25] MEDS: Multivit/Ca/Min/Fe/FA 1 TAB TABLET PO SCH (09:17)
[2021-12-25] MEDS: Loratadine 10 MG TABLET PO SCH (09:17)
[2021-12-25] MEDS: Nystatin POWDER 30 GM BOTTLE TP SCH ×3 (09:18→23:56)
[2021-12-25] MEDS: Fluticasone Propionate Nasal 50 MCG/SPRAY BOTTLE NS SCH (09:18)
[2021-12-25] MEDS ORDERED: Potassium Chloride Elixir 20 MEQ/15 ML UDC PO ONE (11:13)
[2021-12-26 05:29] LABS: Hematocrit 27.6 % (35.3-44.9); Hemoglobin 9.5 g/dL (11.5-15.4); Mean Corpuscular HGB Conc 34.4 g/dL (31.6-35.5); Mean Corpuscular Hemoglobin 36.1 pg (28.0-33.3); Mean Corpuscular Volume 104.9 fL (83.0-100.0); Mean Platelet Volume 9.5 fL (9.4-12.4); Platelet Count 130 K/mcL (140-400); Red Blood Count 2.63 M/mcL (3.82-4.97); Red Cell Distribution Width 16.6 % (11.5-14.5)
[2021-12-26 05:49] LABS: Alanine Aminotransferase 6 Units/L (7-52); Albumin 2.4 g/dL (3.5-5.7); Albumin/Globulin Ratio 0.8 (1.1-2.2); Alkaline Phosphatase 99 Units/L (34-104); Aspartate Amino Transferase 48 Units/L (13-39); BUN/Creatinine Ratio 13 (6-26); Bilirubin,Total 3.5 mg/dL (0.3-1.0); Blood Urea Nitrogen 8 mg/dL (8-23); Calcium 8.2 mg/dL (8.6-10.3); Carbon Dioxide 23 mEq/L (23-29); Chloride 108 mEq/L (98-107); Globulin 2.9 g/dL (2.4-3.5); Glucose 101 mg/dL (70-105); Magnesium 1.9 mg/dL (1.6-2.6); Osmolality,Calculated 276 (280-300); Potassium 3.6 mEq/L (3.5-5.1); Sodium 134 mEq/L (136-145); Total Protein 5.3 g/dL (6.4-8.9); eGFR For African Americans > 60 (> 60); eGFR For Non-African Americans > 60 (> 60)
[2021-12-26] MEDS: *HR* Enoxaparin 40 MG/0.4 ML SYRINGE SQ SCH (05:49)
[2021-12-26] MEDS: Lactobacillus 1 EACH CAP.SPRINK PO SCH ×2 (09:19→20:35)
[2021-12-26] MEDS: PARoxetine 20 MG TABLET PO SCH (09:20)
[2021-12-26] MEDS: Loratadine 10 MG TABLET PO SCH (09:20)
[2021-12-26] MEDS: Magnesium Oxide 400 MG TABLET PO SCH (09:20)
[2021-12-26] MEDS: Multivit/Ca/Min/Fe/FA 1 TAB TABLET PO SCH (09:20)
[2021-12-26] MEDS: Carbidopa/Levodopa 25/100 TABLET PO SCH ×3 (09:20→20:35)
[2021-12-26] MEDS: cefTRIAXone 1,000 MG in 0.9 % Sodium Chloride 10 ML IVP SCH (09:20)
[2021-12-26] MEDS: Aspirin Enteric Coated 81 MG Tablet PO SCH (09:20)
[2021-12-26] MEDS: Fluticasone Propionate Nasal 50 MCG/SPRAY BOTTLE NS SCH (09:21)
[2021-12-26] MEDS: Nystatin POWDER 30 GM BOTTLE TP SCH ×3 (09:21→20:36)
[2021-12-26] MEDS: Vancomycin Oral Soln 125 MG/2.5 ML UDC PO SCH ×4 (09:21→20:35)
[2021-12-27] MEDS: *HR* Enoxaparin 40 MG/0.4 ML SYRINGE SQ SCH (06:25)
[2021-12-27] MEDS: Lactobacillus 1 EACH CAP.SPRINK PO SCH ×2 (09:47→20:43)
[2021-12-27] MEDS: Loratadine 10 MG TABLET PO SCH (09:48)
[2021-12-27] MEDS: PARoxetine 20 MG TABLET PO SCH (09:48)
[2021-12-27] MEDS: Multivit/Ca/Min/Fe/FA 1 TAB TABLET PO SCH (09:48)
[2021-12-27] MEDS: Vancomycin Oral Soln 125 MG/2.5 ML UDC PO SCH ×4 (09:49→20:43)
[2021-12-27] MEDS: Carbidopa/Levodopa 25/100 TABLET PO SCH ×3 (09:49→20:43)
[2021-12-27] MEDS: Aspirin Enteric Coated 81 MG Tablet PO SCH (09:49)
[2021-12-27] MEDS: Magnesium Oxide 400 MG TABLET PO SCH (09:49)
[2021-12-27] MEDS: cefTRIAXone 1,000 MG in 0.9 % Sodium Chloride 10 ML IVP SCH (09:49)
[2021-12-27] MEDS: Nystatin POWDER 30 GM BOTTLE TP SCH ×3 (15:15→20:49)
[2021-12-27] MEDS: Fluticasone Propionate Nasal 50 MCG/SPRAY BOTTLE NS SCH (15:15)
[2021-12-28] MEDS: *HR* Enoxaparin 40 MG/0.4 ML SYRINGE SQ SCH (05:00)
[2021-12-28] MEDS ORDERED: cephALEXin 500 MG CAPSULE PO SCH (09:00)
[2021-12-28] MEDS: Magnesium Oxide 400 MG TABLET PO SCH (09:01)
[2021-12-28] MEDS: Lactobacillus 1 EACH CAP.SPRINK PO SCH (09:01)
[2021-12-28] MEDS: PARoxetine 20 MG TABLET PO SCH (09:01)
[2021-12-28] MEDS: Carbidopa/Levodopa 25/100 TABLET PO SCH (09:01)
[2021-12-28] MEDS: Multivit/Ca/Min/Fe/FA 1 TAB TABLET PO SCH (09:01)
[2021-12-28] MEDS: Loratadine 10 MG TABLET PO SCH (09:01)
[2021-12-28] MEDS: Aspirin Enteric Coated 81 MG Tablet PO SCH (09:01)
[2021-12-28] MEDS: Nystatin POWDER 30 GM BOTTLE TP SCH (09:02)
[2021-12-28] MEDS: Fluticasone Propionate Nasal 50 MCG/SPRAY BOTTLE NS SCH (09:02)
[2021-12-28] MEDS: Vancomycin Oral Soln 125 MG/2.5 ML UDC PO SCH ×2 (09:02→12:19)
[2021-12-28 09:44] VITALS: BP 127/71; PULSE 82; RESP 18; TEMP 98.5; O2SAT 99
[2021-12-28 11:59] LABS: Hematocrit 29.7 % (35.3-44.9); Hemoglobin 10.2 g/dL (11.5-15.4); Mean Corpuscular HGB Conc 34.3 g/dL (31.6-35.5); Mean Corpuscular Hemoglobin 36.3 pg (28.0-33.3); Mean Corpuscular Volume 105.7 fL (83.0-100.0); Platelet Count 102 K/mcL (140-400); Red Blood Count 2.81 M/mcL (3.82-4.97); Red Cell Distribution Width 17.2 % (11.5-14.5); White Blood Count 8.5 K/mcL (4.3-11.1)
[2021-12-28 12:22] LABS: Alanine Aminotransferase 14 Units/L (7-52); Albumin 2.5 g/dL (3.5-5.7); Albumin/Globulin Ratio 0.7 (1.1-2.2); Alkaline Phosphatase 129 Units/L (34-104); Aspartate Amino Transferase 48 Units/L (13-39); BUN/Creatinine Ratio 9 (6-26); Bilirubin,Total 3.5 mg/dL (0.3-1.0); Blood Urea Nitrogen 5 mg/dL (8-23); Calcium 8.4 mg/dL (8.6-10.3); Carbon Dioxide 25 mEq/L (23-29); Chloride 107 mEq/L (98-107); Globulin 3.4 g/dL (2.4-3.5); Glucose 160 mg/dL (70-105); Magnesium 1.9 mg/dL (1.6-2.6); Osmolality,Calculated 277 (280-300); Potassium 3.8 mEq/L (3.5-5.1); Sodium 133 mEq/L (136-145); Total Protein 5.9 g/dL (6.4-8.9); eGFR For African Americans > 60 (> 60); eGFR For Non-African Americans > 60 (> 60)
== END 2021-12-28 15:30 | DRG 872 ==
LOC: INPGRE 08:28 → EMEROOGRE 08:28 → INPGRE 11:23
PROVIDERS: ADMIT Family Medicine; ATTEND Family Medicine

== ENCOUNTER 2022-03-22 18:30 | Inpatient (IN) ==
[2022-03-22 19:16] LABS: Bilirubin,Urine Negative (Negative); Blood,Urine Trace-intact (Negative); Clarity,Urine Cloudy (Clear); Color,Urine Orange (Yellow); Glucose,Urine (UA) Normal (Normal); Ketones,Urine Negative (Negative); Leukocyte Esterase,Urine Small (Negative); Nitrite,Urine Negative (Negative); PH,Urine 5.5 pH Units (5.0-8.0); Protein,Urine 30 mg/dL (Neg-Trace); Specific Gravity,Urine >= 1.030 (1.010-1.025); Urobilinogen,Urine Normal (Normal)
[2022-03-22 19:25] LABS: Bacteria,Urine Many per hpf (None-Few); Squamous Epithelial Cell,Urine Few per hpf (None-Few); WBC,Urine TNTC per hpf (0-3)
[2022-03-22 19:26] LABS: RBC,Urine 0-3 per hpf (0-3)
[2022-03-22 19:48] LABS: Basophils # 0.1 K/mcL (0.0-0.2); Basophils % 0.3 %; Eosinophils % 0.1 %; Hematocrit 26.3 % (35.3-44.9); Hemoglobin 9.1 g/dL (11.5-15.4); Immature Granulocytes % 0.7 % (0-4); Lymphocytes # 1.2 K/mcL (0.6-4.6); Lymphocytes % 3.9 %; Mean Corpuscular HGB Conc 34.6 g/dL (31.6-35.5); Mean Corpuscular Volume 106.9 fL (83.0-100.0); Mean Platelet Volume 10.3 fL (9.4-12.4); Monocytes # 0.9 K/mcL (0.0-1.3); Neutrophils # 27.6 K/mcL (1.6-8.9); Red Blood Count 2.46 M/mcL (3.82-4.97); Red Cell Distribution Width 16.1 % (11.5-14.5)
[2022-03-22 19:56] LABS: INR 1.6; Prothrombin Time 17.3 Seconds (9.4-12.1)
[2022-03-22 19:58] LABS: Activated Partial Thrombo Time 38.8 Seconds (26.0-36.0)
[2022-03-22 20:04] LABS: Platelet Count 88 K/mcL (140-400)
[2022-03-22 20:06] LABS: Troponin I < 0.03 ng/mL (< 0.04)
[2022-03-22 20:08] LABS: Alanine Aminotransferase 18 Units/L (7-52); Albumin 2.6 g/dL (3.5-5.7); Albumin/Globulin Ratio 0.7 (1.1-2.2); Alkaline Phosphatase 67 Units/L (34-104); Aspartate Amino Transferase 38 Units/L (13-39); BUN/Creatinine Ratio 19 (6-26); Bilirubin,Direct 1.3 mg/dL (0.0-0.2); Bilirubin,Indirect 3.4 mg/dL (0.0-1.0); Bilirubin,Total 4.7 mg/dL (0.3-1.0); Blood Urea Nitrogen 13 mg/dL (8-23); Calcium 8.9 mg/dL (8.6-10.3); Carbon Dioxide 27 mEq/L (23-29); Chloride 105 mEq/L (98-107); Globulin 3.7 g/dL (2.4-3.5); Glucose 168 mg/dL (70-105); Lipase 51 Units/L (11-82); Magnesium 1.8 mg/dL (1.6-2.6); Osmolality,Calculated 292 (280-300); Phosphorous 3.2 mg/dL (2.7-4.5); Potassium 3.4 mEq/L (3.5-5.1); Sodium 139 mEq/L (136-145); Total Protein 6.3 g/dL (6.4-8.9)
[2022-03-22] MEDS ORDERED: MetroNIDAZOLE 500 MG/100 ML 500 MG/100 ML BAG IVPB ONE (20:30)
[2022-03-22] MEDS ORDERED: Vancomycin 500 MG in 0.9 % Sodium Chloride Mini Bag 100 ML IVPB STA (20:30)
[2022-03-22] MEDS ORDERED: cefTRIAXone 1,000 MG in Water for inj. (sterile) 10 ML IVP ONE (20:32)
[2022-03-22] MEDS: 0.9 % Sodium Chloride 1,000 ML IVC SCH (20:46)
[2022-03-22] MEDS ORDERED: Naloxone 0.4 MG/ML INJ IVP PRN ×2 (21:33→21:34)
[2022-03-22] MEDS ORDERED: Melatonin 3 MG TABLET PO PRN (21:33)
[2022-03-22] MEDS ORDERED: Acetaminophen 325 MG TABLET PO PRN (21:33)
[2022-03-22] MEDS ORDERED: Ondansetron 4 MG/2 ML VIAL IVP PRN (21:33)
[2022-03-22] MEDS ORDERED: Ipratropium/Albuterol Neb 3 ML IH PRN (21:40)
[2022-03-22] MEDS ORDERED: Loratadine 10 MG TABLET PO PRN (21:40)
[2022-03-22] MEDS ORDERED: 0.9 % Sodium Chloride 1,000 ML IVC SCH (21:45)
[2022-03-22] MEDS: Fidaxomicin 200 MG TABLET PO SCH (23:52)
[2022-03-22] MEDS: *HR* Heparin 5,000 UNIT/ML VIAL SQ SCH (23:53)
[2022-03-23] MEDS: MetroNIDAZOLE 500 MG/100 ML 500 MG/100 ML BAG IVPB SCH ×4 (03:15→20:48)
[2022-03-23 04:49] LABS: INR 1.8; Prothrombin Time 19.5 Seconds (9.4-12.1)
[2022-03-23 04:50] LABS: Basophils # 0.1 K/mcL (0.0-0.2); Basophils % 0.4 %; Eosinophils # 0.1 K/mcL (0.0-0.6); Eosinophils % 0.4 %; Hematocrit 22.6 % (35.3-44.9); Hemoglobin 7.8 g/dL (11.5-15.4); Immature Granulocytes % 0.7 % (0-4); Lymphocytes # 1.5 K/mcL (0.6-4.6); Lymphocytes % 7.1 %; Mean Corpuscular HGB Conc 34.5 g/dL (31.6-35.5); Mean Corpuscular Hemoglobin 37.1 pg (28.0-33.3); Mean Corpuscular Volume 107.6 fL (83.0-100.0); Mean Platelet Volume 9.9 fL (9.4-12.4); Monocytes # 1.1 K/mcL (0.0-1.3); Monocytes % 5.1 %; Neutrophils # 18.5 K/mcL (1.6-8.9); Segmented Neutrophils % 86.3 %; White Blood Count 21.4 K/mcL (4.3-11.1)
[2022-03-23 05:01] LABS: BUN/Creatinine Ratio 22 (6-26); Blood Urea Nitrogen 13 mg/dL (8-23); Calcium 8.3 mg/dL (8.6-10.3); Carbon Dioxide 25 mEq/L (23-29); Chloride 107 mEq/L (98-107); Glucose 129 mg/dL (70-105); Magnesium 1.6 mg/dL (1.6-2.6); Osmolality,Calculated 288 (280-300); Phosphorous 2.7 mg/dL (2.7-4.5); Platelet Count 71 K/mcL (140-400); Potassium 3.2 mEq/L (3.5-5.1); Sodium 138 mEq/L (136-145)
[2022-03-23] MEDS: *HR* Heparin 5,000 UNIT/ML VIAL SQ SCH ×3 (06:10→19:09)
[2022-03-23] MEDS: 0.9 % Sodium Chloride 1,000 ML IVC SCH ×3 (06:10→15:07)
[2022-03-23] MEDS: cefTRIAXone 1,000 MG in 0.9 % Sodium Chloride 10 ML IVP SCH (09:57)
[2022-03-23] MEDS: Lactobacillus 1 EACH CAP.SPRINK PO SCH ×2 (09:58→20:48)
[2022-03-23] MEDS: Nystatin POWDER 30 GM BOTTLE TP SCH ×2 (09:58→23:30)
[2022-03-23] MEDS: Folic Acid 1 MG TABLET PO SCH (09:58)
[2022-03-23] MEDS: Furosemide 40 MG TABLET PO SCH ×2 (09:58→16:48)
[2022-03-23] MEDS: Spironolactone 25 MG TABLET PO SCH (09:58)
[2022-03-23] MEDS: Fidaxomicin 200 MG TABLET PO SCH ×2 (10:00→20:48)
[2022-03-23] MEDS: Fluticasone Propionate Nasal 50 MCG/SPRAY BOTTLE NS SCH (10:00)
[2022-03-23 10:57] LABS: Campylobacter by PCR Not detected (Not detect)
[2022-03-23 10:59] LABS: Astrovirus PCR Not detected (Not detect); C.difficile Toxin A/B Gene PCR DETECTED (Not detect); Cryptosporidium by PCR Not detected (Not detect); Cyclospora cayetanensis PCR Not detected (Not detect); Entamoeba histolytica PCR Not detected (Not detect); Enteroaggregative E.coli(EAEC) Not detected (Not detect); Enteropathogenic E.coli(EPEC) Not detected (Not detect); Enterotoxigenic E.coli (ETEC) Not detected (Not detect); Giardia lamblia PCR Not detected (Not detect); Norovirus GI/GII PCR Not detected (Not detect); Plesiomonas shigelloides PCR Not detected (Not detect); Rotavirus A PCR Not detected (Not detect); Salmonella PCR Not detected (Not detect); Sapovirus PCR Not detected (Not detect); Shig/EnteroinvasiveE coli EIEC Not detected (Not detect); Shigalike tox-prod E coli STEC Not detected (Not detect); Vibrio PCR Not detected (Not detect); Vibrio cholerae PCR Not detected (Not detect); Yersinia enterocolitica PCR Not detected (Not detect)
[2022-03-23 11:00] LABS: Adenovirus F 40/41 PCR Not detected (Not detect)
[2022-03-24] MEDS: 0.9 % Sodium Chloride 1,000 ML IVC SCH (01:10)
[2022-03-24] MEDS: MetroNIDAZOLE 500 MG/100 ML 500 MG/100 ML BAG IVPB SCH ×4 (03:16→21:43)
[2022-03-24 03:47] LABS: Hematocrit 21.5 % (35.3-44.9); Mean Corpuscular HGB Conc 32.6 g/dL (31.6-35.5); Mean Corpuscular Hemoglobin 35.9 pg (28.0-33.3); Mean Corpuscular Volume 110.3 fL (83.0-100.0); Mean Platelet Volume 10.4 fL (9.4-12.4); Red Blood Count 1.95 M/mcL (3.82-4.97); Red Cell Distribution Width 16.3 % (11.5-14.5); White Blood Count 10.4 K/mcL (4.3-11.1)
[2022-03-24 03:50] LABS: Platelet Count 67 K/mcL (140-400)
[2022-03-24 04:04] LABS: Alanine Aminotransferase 14 Units/L (7-52); Albumin 2.2 g/dL (3.5-5.7); Albumin/Globulin Ratio 0.8 (1.1-2.2); Alkaline Phosphatase 79 Units/L (34-104); Aspartate Amino Transferase 28 Units/L (13-39); BUN/Creatinine Ratio 22 (6-26); Bilirubin,Total 2.7 mg/dL (0.3-1.0); Blood Urea Nitrogen 12 mg/dL (8-23); Calcium 7.6 mg/dL (8.6-10.3); Carbon Dioxide 24 mEq/L (23-29); Chloride 109 mEq/L (98-107); Globulin 2.9 g/dL (2.4-3.5); Glucose 162 mg/dL (70-105); Magnesium 1.5 mg/dL (1.6-2.6); Osmolality,Calculated 285 (280-300); Potassium 3.2 mEq/L (3.5-5.1); Sodium 136 mEq/L (136-145); Total Protein 5.1 g/dL (6.4-8.9)
[2022-03-24] MEDS: *HR* Heparin 5,000 UNIT/ML VIAL SQ SCH (04:58)
[2022-03-24] MEDS ORDERED: *HR* Enoxaparin 40 MG/0.4 ML SYRINGE SQ SCH (06:00)
[2022-03-24] MEDS: Fidaxomicin 200 MG TABLET PO SCH ×3 (08:52→21:43)
[2022-03-24] MEDS: Spironolactone 25 MG TABLET PO SCH (08:59)
[2022-03-24] MEDS: Folic Acid 1 MG TABLET PO SCH (08:59)
[2022-03-24] MEDS: Furosemide 40 MG TABLET PO SCH ×2 (08:59→16:45)
[2022-03-24] MEDS: Lactobacillus 1 EACH CAP.SPRINK PO SCH ×2 (09:00→21:43)
[2022-03-24] MEDS: cefTRIAXone 1,000 MG in 0.9 % Sodium Chloride 10 ML IVP SCH (09:00)
[2022-03-24] MEDS: Nystatin POWDER 30 GM BOTTLE TP SCH ×2 (09:01→21:44)
[2022-03-24] MEDS: Fluticasone Propionate Nasal 50 MCG/SPRAY BOTTLE NS SCH (09:01)
[2022-03-24] MEDS: Lactulose Oral Soln 20 GM/30 ML UDC PO SCH ×3 (11:30→21:44)
[2022-03-24] MEDS ORDERED: Vancomycin Oral Soln 125 MG/2.5 ML UDC PO SCH (17:00)
[2022-03-24] MEDS ORDERED: *HR* Dextrose 50 % in Water (Syg) 50 ML SYRINGE IVP PRN (17:04)
[2022-03-24] MEDS ORDERED: Dextrose Gel 15 GM/37.5 ML TUBE PO PRN ×2 (17:04)
[2022-03-24] MEDS ORDERED: D5% in Water 1,000 ML IVC PRN (17:04)
[2022-03-24] MEDS: Insulin LISPRO 300 UNITS/3 ML VIAL SUBQ SCH ×2 (17:46→20:50)
[2022-03-25] MEDS: MetroNIDAZOLE 500 MG/100 ML 500 MG/100 ML BAG IVPB SCH ×2 (03:01→10:54)
[2022-03-25 05:01] LABS: Hematocrit 22.1 % (35.3-44.9); Hemoglobin 7.3 g/dL (11.5-15.4); Mean Corpuscular Hemoglobin 35.8 pg (28.0-33.3); Mean Corpuscular Volume 108.3 fL (83.0-100.0); Mean Platelet Volume 10.1 fL (9.4-12.4); Red Blood Count 2.04 M/mcL (3.82-4.97); White Blood Count 8.6 K/mcL (4.3-11.1)
[2022-03-25 05:07] LABS: Platelet Count 76 K/mcL (140-400)
[2022-03-25 05:21] LABS: Alanine Aminotransferase 15 Units/L (7-52); Albumin 2.2 g/dL (3.5-5.7); Albumin/Globulin Ratio 0.7 (1.1-2.2); Alkaline Phosphatase 76 Units/L (34-104); Aspartate Amino Transferase 30 Units/L (13-39); BUN/Creatinine Ratio 21 (6-26); Bilirubin,Total 2.8 mg/dL (0.3-1.0); Blood Urea Nitrogen 11 mg/dL (8-23); Calcium 7.5 mg/dL (8.6-10.3); Carbon Dioxide 24 mEq/L (23-29); Chloride 107 mEq/L (98-107); Glucose 99 mg/dL (70-105); Magnesium 1.7 mg/dL (1.6-2.6); Osmolality,Calculated 279 (280-300); Potassium 3.6 mEq/L (3.5-5.1); Sodium 135 mEq/L (136-145); Total Protein 5.2 g/dL (6.4-8.9)
[2022-03-25 06:06] LABS: Thyroid Stimulating Hormone 1.371 mcIU/mL (0.340-5.600)
[2022-03-25] MEDS: Insulin LISPRO 300 UNITS/3 ML VIAL SUBQ SCH ×4 (08:31→19:51)
[2022-03-25] MEDS: Lactulose Oral Soln 20 GM/30 ML UDC PO SCH ×3 (08:31→20:04)
[2022-03-25] MEDS: Lactobacillus 1 EACH CAP.SPRINK PO SCH ×2 (08:32→19:58)
[2022-03-25] MEDS: cefTRIAXone 1,000 MG in 0.9 % Sodium Chloride 10 ML IVP SCH (08:32)
[2022-03-25] MEDS: Fluticasone Propionate Nasal 50 MCG/SPRAY BOTTLE NS SCH (08:32)
[2022-03-25] MEDS: Furosemide 40 MG TABLET PO SCH ×2 (08:32→17:12)
[2022-03-25] MEDS: Spironolactone 25 MG TABLET PO SCH (08:32)
[2022-03-25] MEDS: Folic Acid 1 MG TABLET PO SCH (08:32)
[2022-03-25] MEDS: Fidaxomicin 200 MG TABLET PO SCH ×2 (08:33→19:59)
[2022-03-25] MEDS: Nystatin POWDER 30 GM BOTTLE TP SCH ×2 (08:34→21:38)
[2022-03-25 11:27] LABS: % Iron Saturation 23 % (15-50); Iron 52 mcg/dL (50-170); Transferrin 164 mg/dL (203-362)
[2022-03-25 11:53] LABS: Folate 10.2 ng/mL (3.0-16.0)
[2022-03-25 11:56] LABS: Vitamin B12 > 1500 pg/mL (250-1100)
[2022-03-25] MEDS ORDERED: Carbamide Peroxide 150 DROP/15 ML BOTTLE LEFT EAR ONE (12:50)
[2022-03-25] MEDS ORDERED: Carbamide Peroxide 150 DROP/15 ML BOTTLE RIGHT EAR ONE (12:50)
[2022-03-25 12:59] LABS: Estimated Average Glucose 103 mg/dl; Hemoglobin A1C 5.2 %
[2022-03-25] MEDS ORDERED: Carbamide Peroxide 150 DROP/15 ML BOTTLE LEFT EAR SCH (13:51)
[2022-03-25] MEDS: Vancomycin Oral Soln 125 MG/2.5 ML UDC PO SCH ×3 (14:01→20:01)
[2022-03-25] MEDS: Carbamide Peroxide 150 DROP/15 ML BOTTLE BOTH EARS SCH ×2 (14:02→20:05)
[2022-03-26 05:11] LABS: Hematocrit 23.6 % (35.3-44.9); Hemoglobin 7.9 g/dL (11.5-15.4); Mean Corpuscular HGB Conc 33.5 g/dL (31.6-35.5); Mean Corpuscular Hemoglobin 36.4 pg (28.0-33.3); Mean Corpuscular Volume 108.8 fL (83.0-100.0); Mean Platelet Volume 9.7 fL (9.4-12.4); Red Blood Count 2.17 M/mcL (3.82-4.97); Red Cell Distribution Width 15.9 % (11.5-14.5); White Blood Count 8.6 K/mcL (4.3-11.1)
[2022-03-26 05:15] LABS: Platelet Count 98 K/mcL (140-400)
[2022-03-26 05:27] LABS: Alanine Aminotransferase 16 Units/L (7-52); Albumin 2.4 g/dL (3.5-5.7); Albumin/Globulin Ratio 0.7 (1.1-2.2); Alkaline Phosphatase 77 Units/L (34-104); Aspartate Amino Transferase 34 Units/L (13-39); BUN/Creatinine Ratio 24 (6-26); Bilirubin,Total 3.1 mg/dL (0.3-1.0); Blood Urea Nitrogen 12 mg/dL (8-23); Calcium 8.2 mg/dL (8.6-10.3); Carbon Dioxide 26 mEq/L (23-29); Chloride 105 mEq/L (98-107); Globulin 3.3 g/dL (2.4-3.5); Glucose 122 mg/dL (70-105); Magnesium 1.9 mg/dL (1.6-2.6); Osmolality,Calculated 279 (280-300); Potassium 4.2 mEq/L (3.5-5.1); Sodium 134 mEq/L (136-145); Total Protein 5.7 g/dL (6.4-8.9)
[2022-03-26] MEDS: Insulin LISPRO 300 UNITS/3 ML VIAL SUBQ SCH ×4 (08:50→20:38)
[2022-03-26] MEDS: Lactulose Oral Soln 20 GM/30 ML UDC PO SCH ×3 (08:59→19:23)
[2022-03-26] MEDS: Vancomycin Oral Soln 125 MG/2.5 ML UDC PO SCH ×4 (09:00→19:25)
[2022-03-26] MEDS: Carbamide Peroxide 150 DROP/15 ML BOTTLE BOTH EARS SCH ×2 (09:01→19:27)
[2022-03-26] MEDS: Spironolactone 25 MG TABLET PO SCH (09:01)
[2022-03-26] MEDS: Lactobacillus 1 EACH CAP.SPRINK PO SCH ×2 (09:01→19:21)
[2022-03-26] MEDS: Furosemide 40 MG TABLET PO SCH ×2 (09:01→17:10)
[2022-03-26] MEDS: Fluticasone Propionate Nasal 50 MCG/SPRAY BOTTLE NS SCH (09:01)
[2022-03-26] MEDS: Folic Acid 1 MG TABLET PO SCH (09:01)
[2022-03-26] MEDS: Fidaxomicin 200 MG TABLET PO SCH ×2 (09:01→19:20)
[2022-03-26] MEDS: Nystatin POWDER 30 GM BOTTLE TP SCH ×2 (09:02→21:07)
[2022-03-26] MEDS: cefTRIAXone 1,000 MG in 0.9 % Sodium Chloride 10 ML IVP SCH (09:02)
[2022-03-26 16:35] VITALS: O2SAT 98
[2022-03-26 19:20] VITALS: BP 114/68; PULSE 82; RESP 15; TEMP 98.3
== END 2022-03-26 23:59 | disposition other institution (70) | DRG 372 ==
LOC: EMEROOGRE 18:30 → INPGRE 18:30
PROVIDERS: ADMIT Internal Medicine; ATTEND Internal Medicine